=== PATIENT | male | born 1955 | race African-American/Black ===

== ENCOUNTER 2017-01-02 07:02 | Observation (INO) ==
--- NOTE | 2017-01-02 07:18 | EKG Report ---
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
[2017-01-02 07:29] LABS: Basophils # 0.1 10*3/uL (0.0-0.2); Basophils % 0.4 % (0.0-0.8); Eosinophils # 0.7 10*3/uL (0.0-0.87); Eosinophils % 4.4 % (0.00-10.9); Hematocrit 41.8 VOL% (42.0-52.0); Hemoglobin 12.7 GM/DL (14.0-18.0); Immature Granulocytes % 0.2 %; Immature Granulocytes Absolute 0.04 #; Lymphocytes # 11.5 10*3/uL (1.4-4.0); Lymphocytes % 67.6 % (21.2-54.2); Mean Corpuscular HGB Conc 30.4 GM/DL (32-36); Mean Corpuscular Hemoglobin 21 PG (27-34); Mean Corpuscular Volume 69.8 FL (87-102); Mean Platelet Volume 10.3 FL (9.6-12.0); Monocytes # 0.8 10*3/uL (0.11-0.8); Monocytes % 4.8 % (1.7-12.7); Neutrophils # 3.8 10*3/uL (1.4-7.4); Neutrophils % 22.6 % (38.7-73.9); Platelet Count 246 T/CUMM (130-400); Red Blood Count 5.99 MC/CUMM (3.8-5.5); Red Cell Distribution Width 14.8 % (9.3-17.3); White Blood Count 16.9 T/CUMM (4-12)
[2017-01-02] MEDS ORDERED: DILTIAZEM 50 MG/10 ML VIAL IV ONE (07:45)
[2017-01-02] MEDS ORDERED: DILTIAZEM 100 MG VIAL.ADD IV ONE (07:45)
[2017-01-02] MEDS ORDERED: ASPIRIN 325 MG TABLET PO STA (07:46)
[2017-01-02] MEDS ORDERED: ENOXAPARIN 100 MG/ML SYRINGE SUBCUT STA (07:46)
[2017-01-02] MEDS ORDERED: DILTIAZEM 50 MG/10 ML VIAL IV STA (07:46)
[2017-01-02] MEDS ORDERED: ENOXAPARIN 120 MG/0.8 ML SYRINGE SUBCUT ONE (07:50)
[2017-01-02] MEDS ORDERED: ASPIRIN 325 MG TABLET ONE (07:50)
--- NOTE | 2017-01-02 07:50 | XRay Report ---
XR chest 2V Indication: Cardiac palpitation Comparison: 07 September 2014 Findings: The heart and mediastinum are normal in size and configuration. The pulmonary vascularity is normal in caliber. Lung volumes are increased with prominent bronchial markings. No lung infiltrates, effusions, pneumothorax or other abnormality is demonstrated. Impression: Chronic lung changes. No acute process or significant change. PROCEDURE INTERPRETED AT [facility] DEPARTMENT OF RADIOLOGY Final Report Signed by: Dr. Scooter Manning
[2017-01-02 07:57] LABS: Alanine Aminotransferase 17 U/L (16-61); Albumin 2.8 G/DL (3.4-5.0); Alkaline Phosphatase 161 U/L (45-117); Aspartate Amino Transferase 10 U/L (0-37)
[2017-01-02 07:58] LABS: Blood Urea Nitrogen 8 MG/DL (7-18); Glucose 155 MG/DL (74-106); Osmolality,Calculated 279.4 MOS/KG (273-304); Potassium 3.8 MMOL/L (3.5-5.1); Sodium 140 MMOL/L (136-145)
[2017-01-02 08:01] LABS: Eosinophils 9 % (0-10); Hypochromasia 1+; Lymphocytes 55 % (20-55); Ovalocytes Slight; Platelet Estimate Normal; Segmented Neutrophils 31 % (50-85); Total Cells Counted 100
[2017-01-02 08:02] LABS: Troponin I Only 0.048 NG/ML (0.00-0.045)
[2017-01-02] MEDS: DILTIAZEM INJ 100 MG in SODIUM CHLORIDE 0.9% 100 ML IV SCH (08:02)
[2017-01-02 08:03] LABS: INR 1.1; PT Patient Result 12.2 SECS
[2017-01-02 08:20] LABS: Albumin 2.9 G/DL (3.4-5.0); Calcium 8.8 MG/DL (8.5-10.1); Osmolality,Calculated 277.5 MOS/KG (273-304); Potassium 3.8 MMOL/L (3.5-5.1); Thyroid Stimulating Hormone 1.37 uIU/ml (0.358-3.74); Total Protein 7.6 G/DL (6.4-8.3)
[2017-01-02 08:23] LABS: Troponin I Only 0.048 NG/ML (0.00-0.045)
[2017-01-02 08:55] LABS: Barbiturates Screen,Urine Negative (Negative); Benzodiazepines Screen,Urine Negative (Negative); Cannabinoid Screen,Urine Negative (Negative); Opiate Screen,Urine Negative (Negative); Phencyclidine Screen,Urine Negative (Negative)
--- NOTE | 2017-01-02 08:59 | Emergency Department Note ---
Aureliano Srivastava Meredith, am scribing for, and in the presence of, Rahul Laughlin MD 07:43. Truman Srivastava Phillip K, MD, personally performed the services described in this documentation, ascribed by Kathryn Bedoya in my presence, and it is both accurate and complete [id number] . Arrival - Arrival Chief Complaint: Arrhythmia/Palpitations Stated Complaint: increased heart rate ED Nursing Triage Note: Brought to ED from GI lab with c/o increased heart rate. Denies complaints. Was scheduled for colon scope this am by Dr Ybarra. Mode of Arrival: Stretcher Limitations: No Limitations Source: Patient, Old Records Reviewed, RN Notes Reviewed Time Seen by Provider: 01/02/17 07:43 - History of Present Illness HPI Narrative: Pt is a 61 y/o black male brought to the ED from the GI lab for elevated heart rate. He denies any complaints. Pt was supposed to have a colon scope per Dr. Ybarra. He has a history of a-fib, CHF, HTN, HLD, NIDDM, RA, asthma, and sleep apnea. Onset (ago): hour(s) Allergies/Adverse Reactions: Allergies Allergy/AdvReac Type Severity Reaction Status Date / Time Shrimp Allergy Unknown Unknown/Unable Verified 01/02/17 07:08 to obtain sulfamethoxazole Allergy Unknown Unknown/Unable Verified 01/02/17 07:08 [From Bactrim] to obtain trimethoprim [From Bactrim] Allergy Unknown Unknown/Unable Verified 01/02/17 07: 08 to obtain Home Medications: Home Medications Medication Instructions Recorded Confirmed Type Atorvastatin [Lipitor] 40 mg PO BEDTIME 09/07/15 12/26/16 History Labetalol Tab [Trandate Tab] 200 mg PO DAILY 09/07/15 01/01/17 History Lisinopril 40 mg PO DAILY 09/07/15 12/26/16 History Spironolactone [Aldactone] 25 mg PO DAILY 09/07/15 12/26/16 History hydroCHLOROthiazide 25 mg PO DAILY 09/07/15 01/01/17 History [Hydrochlorothiazide] metFORMIN [Glucophage] 1,000 mg PO BID W/MEALS 09/07/15 01/02/17 History Carvedilol [Coreg] 6.25 mg PO BID 12/26/16 12/26/16 History Sildenafil Citrate [Viagra] 100 mg PO DAILY PRN 12/26/16 12/26/16 History hydrALAZINE TAB [Apresoline Tab] 25 mg PO DAILY 12/26/16 12/26/16 History Review of System - Review of System 12 point system: reviewed and no additional remarkable complaints except as stated - Review of System Respiratory: Present: as per HPI. Absent: respiratory distress Cardiovascular: Present: as per HPI, other (elevated heart rate). Absent: chest pain Gastrointestinal: Present: as per HPI. Absent: nausea Medical,Surgical,& Family Hx - Medical History Cardio: History of: Cardiac Dysrhythmia (A. fib), CHF, Hypertension No history of: [place], Valvular Heart Disease Neurology: No history of: Cerebrovascular Accident, Seizures Endocrine: History of: Diabetes Mellitus (NIDDM), Dyslipidemia Rheumatology: History of;: Rheumatoid Arthritis (in 2003) Respiratory: History of: Asthma, Obstructive Sleep Apnea Gastrointestinal: History of: Liver Problems (Elevated liver enzymes in the past ) Musculoskeletal: History of: Musculoskeletal Problems (arthritis) No history of: Amputation - Surgical History Cardiac Surgeries: Patient Denies: Cardiac Catheterization Thoracic Surgeries: Patient denies;: Organ Transplant, Lobectomy Neurologic Surgeries: Patient denies: Neurologic Surgery HEENT Surgeries: Patient denies: Eye Surgery, Tonsilectomy & Adenoidectomy Abdominal Surgeries: Surgical HX of: Abdominal Surgery Patient denies: Appendectomy, Cholecystectomy, Colonoscopy, Gastric Bypass Surgery, EGD, Hernia Repair Reproductive Surgeries: Patient denies;: Genitourinary Surgery Orthopedic Surgeries: Surgical HX of;: Orthopedic Surgery (left foot bone spurs) Patient denies;: Implanted Devices, Spinal Surgery, Total Hip Replacement, Total Knee Replacement - Family History Family History: Reports;: Family Diabetes (Mother, Father, Brother), Family Heart Disease (Sister), Family Hypertension (Mother, Father, Brother, Sister), Family Stroke Denies;: Family Cancer - Social History Smoking Status: Never smoker Frequency of Alcohol Use: None Type of Drug Use: None Exam Vital Signs: Vital Signs Temperature 97.9 F 01/02/17 07:02 Pulse Rate 155 H 01/02/17 07:05 Respiratory Rate 18 01/02/17 07:05 Blood Pressure 164/106 01/02/17 07:02 O2 Sat by Pulse Oximetry 99 01/02/17 07:02 - General General appearance: alert, in no apparent distress, obese - Head Head exam: Present: atraumatic, normocephalic - Eye Eye exam: Present: normal appearance, PERRL, EOMI - ENT ENT exam: Present: mucous membranes moist, normal external ear exam - Neck Neck exam: Present: full ROM, trachea midline. Absent: tenderness, meningismus , lymphadenopathy, thyromegaly - Chest Chest inspection: Present: symmetric chest wall rise. Absent: tenderness, rash - Respiratory Respiratory exam: Present: normal lung sounds bilaterally. Absent: respiratory distress - Cardiovascular Cardiovascular exam: Present: tachycardia, irregular rhythm. Absent: murmur, rubs, gallop - Abdominal Exam Abdominal exam: Present: soft, normal bowel sounds. Absent: distention, tenderness - Extremities Exam Extremities exam: Present: full ROM, normal capillary refill, pedal edema (1+ pitting pedal edema bilaterally ). Absent: tenderness, calf tenderness - Back Exam Back exam: Present: full ROM. Absent: tenderness - Neurological Exam Neurological exam: Present: alert, oriented X3, CN II-XII intact. Absent: motor sensory deficit - Psychiatric Psychiatric exam: Present: normal affect, normal mood - Skin Skin exam: Present: warm, dry, intact, normal color Course Course Narrative: Mr. Byrnes is a patient of Dr. Newberry's and Dr. Luna is weapons officer for him and he will evaluate in the ED. Results - Labs CBC & BMP: 01/02/17 07:20 01/02/17 07:20 Lab Results: I have reviewed the patients labs Labs: Laboratory Tests 01/02/17 01/02/17 01/02/17 07:20 07:20 07:20 WBC 16.9 H RBC 5.99 H Hgb 12.7 L Hct 41.8 L MCV 69.8 L MCH 21 L MCHC 30.4 L Plt Count 246 Neut % (Auto) 22.6 L Lymph % (Auto) 67.6 H Lymph # (Auto) 11.5 H Segmented Neutrophils 31 L INR 1.1 PT Patient/Control Mix 12.2 Sodium 140 Potassium 3.8 Chloride 105 Carbon Dioxide 24 BUN 8 Creatinine 0.70 Glucose 155 H Alkaline Phosphatase 161 H Troponin I 0.048 H Albumin 2.8 L Globulin 5.2 H Albumin/Globulin Ratio 0.5 L - EKG EKG results: interpreted by RICK (atrial fibrillation with RVR) - Diagnostic Findings Procedure: Chest x-ray: report reviewed by me (Chronic lung changes. No acute process or significant change. ) Disposition Clinical Impression: Atrial fibrillation with RVR Case discussed with: patient Disposition: Still a Patient Condition: Guarded Additional Instructions: Admitted to Dr. Luna
--- NOTE | 2017-01-02 10:25 | Cardiology History & Physical ---
Assessment and Plan - Time spent with patient Time spent with patient: Greater than 30 minutes (1) Hypertension Status: Chronic Assessment and plan: SEE PLAN OF CARE LISTED BELOW Current Visit: Yes (2) Hyperlipidemia Status: Chronic Assessment and plan: SEE PLAN OF CARE LISTED BELOW Current Visit: Yes (3) Diabetes Status: Chronic Assessment and plan: SEE PLAN OF CARE LISTED BELOW Current Visit: Yes (4) Hepatitis Status: Chronic Assessment and plan: SEE PLAN OF CARE LISTED BELOW Current Visit: Yes (5) Sleep disorder Status: Chronic Assessment and plan: SEE PLAN OF CARE LISTED BELOW Current Visit: Yes (6) Obesity (BMI 30.0-34.9) Status: Acute Current Visit: Yes (7) CLL (chronic lymphocytic leukemia) Status: Chronic Assessment and plan: SEE PLAN OF CARE LISTED BELOW Current Visit: Yes (8) Cardiomyopathy, dilated Status: Chronic Assessment and plan: SEE PLAN OF CARE LISTED BELOW Current Visit: Yes (9) Elevated troponin Status: Acute Assessment and plan: SEE PLAN OF CARE LISTED BELOW Current Visit: Yes (10) Edema Status: Chronic Assessment and plan: SEE PLAN OF CARE LISTED BELOW Current Visit: Yes (11) Diabetes mellitus type 2 in obese Status: Chronic Assessment and plan: SEE PLAN OF CARE LISTED BELOW Current Visit: No (12) Atrial fibrillation with RVR Status: Chronic Assessment and plan: SEE PLAN OF CARE LISTED BELOW Current Visit: Yes History of Present Illness Chief complaint: atrial fibrillation with rapid ventricular response History of present illness: Mr. Byrnes is a 61 year old male previously followed by Dr. Newberry while hospitalized. He has not been seen in cardiovascular [place] at the [facility]. Last echocardiogram 02/28/2016 reveals EF 55% four-chamber cardiac enlargement, moderate pulmonary hypertension with quadrivalvular mild insufficiency. Risk factors include: Hypertension, diabetes, hyperlipidemia, obesity, sedentary lifestyle. Past medical history includes atrial fibrillation , dilated cardiomyopathy, CLL, SLL, untreated sleep apnea, hypothyroidism, hepatitis. 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 Patient tells me he's never had stress testing or cardiac catheterization. Patient was being readied for colonoscopy this morning when his heart rate revealed rates as high as the 180s. He was noted to be in atrial fibrillation with rapid ventricular response. He was then routed to the emergency department at [facility] where he is being seen and examined. He has been started on IV Cardizem 15 mg/h and his heart rate has improved from 90 bpm to 120 bpm. He remains in an atrial fibrillation pattern. This is not a new occurrence. He tells me he was encouraged to take Xarelto in the past but declined because he was afraid of the side effects. He denies ever having had a stroke. He does not take aspirin. Patient denies chest pain, heaviness or tightness. He denies shortness of breath. He states he felt fine when his heart rate was noted to be 180 bpm. He cannot tell a difference his heart rate has improved to the previously stated rates. He has not taken his medications in weeks and possibly months. He has been out of medications including his diabetes medications. Upon review , the last time he was seen in Dr. Peguero's office, June 2016, is noted he was taking the following cardiac meds: Coreg, Aldactone, Lasix, hydralazine, HCTZ, lisinopril and Lipitor. At this point, Mr. Byrnes is anxious for release home but he acknowledges that he will agree to hospitalization, overnight. He states he cannot have his colonoscopy today he will simply not undergo colonoscopy as he intends on eating a full meal today. Of note, his first set of cardiac biomarkers reveals a troponin of 0.04. We'll continue to cycle his cardiac biomarkers, repeat echocardiogram. Will transition from IV Cardizem to oral Cardizem as able. I did discuss the merits of taking nontraditional anticoagulant for stroke prevention however he still declines at this point. Hopefully, during hospital stay, he'll be agreeable to take at least an aspirin and we can consider something such as Plavix. I will go ahead and order Lovenox 1 mg/kg one time dose. Patient tells me that he snores loudly. He has a Mallampati Airway Class III. He wakes chronically fatigued. He was told in the past he has sleep apnea though he has never been tested. He has been referred but never kept this appointment. We will consult sleep medicine during the hospital stay or arrange for outpatient sleep testing. ASSESSMENT/PLAN: 1. ATRIAL FIBRILLATION WITH RVR - currently on IV Cardizem 50 mg/h. We will transition to oral in addition to the IV until we get his heart rate under better control. Again, we could consider the Plavix for stroke prevention if he is agreeable. I he was scheduled for elective colonoscopy. He denies vomiting of blood or passing blood in his stool. However, he is somewhat mildly anemic. We will check a stool for occult blood 2. NON-COMPLIANCE - reiterated the merits of compliance 3. HYPERTENSION - adjust medications accordingly during the hospital several better blood pressure control 4. HLD -check liver enzymes. If LFTs are stable will incorporate a lipid- lowering agent 5. ELEVATED TROPONIN - first report reveals a troponin of 0.04. We'll continue to cycle his cardiac biomarkers. 6. CLL/SLL - previously followed by Dr. Tyler. We'll consult as needed during hospital stay 7. UNTREATED SLEEP APNEA -consult sleep medicine 8. ANEMIA - continue current plan of care 9. DIABETES - cover with sliding scale insulin until he can get his sugars well controlled on oral medications 10. CARDIOMYOPATHY, DILATED - repeating echocardiogram 11. HISTORY OF HEPATITIS - records report chronic hepatitis. 12. ALLERGY AMIODORONE - possibly contributing to congestive hepatopathy 13. ALLERGY SHRIMP - vomiting, mouth swelling 14. EDEMA - hopefully, with better control of his heart rate, we will be able to rid him of some of his lower extremity edema. He's been out of his diuretics. We'll also check for DVT. Home Medications Medication Instructions Recorded Confirmed Type Atorvastatin [Lipitor] 40 mg PO BEDTIME 09/07/15 12/26/16 History Labetalol Tab [Trandate Tab] 200 mg PO DAILY 09/07/15 01/01/17 History Lisinopril 40 mg PO DAILY 09/07/15 12/26/16 History Spironolactone [Aldactone] 25 mg PO DAILY 09/07/15 12/26/16 History hydroCHLOROthiazide 25 mg PO DAILY 09/07/15 01/01/17 History [Hydrochlorothiazide] metFORMIN [Glucophage] 1,000 mg PO BID W/MEALS 09/07/15 01/02/17 History Carvedilol [Coreg] 6.25 mg PO BID 12/26/16 12/26/16 History Sildenafil Citrate [Viagra] 100 mg PO DAILY PRN 12/26/16 12/26/16 History hydrALAZINE TAB [Apresoline Tab] 25 mg PO DAILY 12/26/16 12/26/16 History Allergies Allergy/AdvReac Type Severity Reaction Status Date / Time Shrimp Allergy Unknown Unknown/Unable Verified 01/02/17 07:08 to obtain sulfamethoxazole Allergy Unknown Unknown/Unable Verified 01/02/17 07:08 [From Bactrim] to obtain trimethoprim [From Bactrim] Allergy Unknown Unknown/Unable Verified 01/02/17 07: 08 to obtain Review of systems: REVIEW OF SYSTEMS: See my HPI - Constitutional Constitutional: Absent: syncope, anorexia, night sweats - EENT Eyes: Absent: blurry vision, loss of vision, diplopia Ears: Absent: decreased hearing, ear pain, ear discharge - Cardiovascular Cardiovascular: Denies: chest pain with exertion, dyspnea on exertion, palpitations. Absent: chest pain with deep breath, claudication. Chronic bilateral lower extremity edema - Respiratory Respiratory: Denies LUDWIG, cough. Absent: wheezing, hemoptysis, change in phlegm color - Gastrointestinal Gastrointestinal: Present: constipation. Absent: abdominal pain, hematemesis , hematochezia, melena, change in bowel habits, nausea - Genitourinary Genitourinary: Absent: difficulty urinating, dysuria, urinary hesitancy, flank pain eared acknowledges impotence. - Musculoskeletal Musculoskeletal: Present: back pain, left foot pain Absent: joint swelling, muscle cramps, muscle weakness - Neurological Neurological: Present: normal gait without frequent falls. Absent: dizziness, hemiparesis - Psychiatric Psychiatric: Absent: anxiety, depression, difficulty concentrating - Endocrine Endocrine: Absent: cold intolerance, heat intolerance, polyuria, polyphagia, polydipsia - Hematologic/Lymphatic Hematologic/Lymphatic: Present: easy bruising. Absent: easy bleeding -Integumentary Integumentary: Absent: lesions, rashes, skin breakdown Medical,Surgical,& Family Hx - Medical History Cardio: History of: Cardiac Dysrhythmia (A. fib), CHF, Hypertension No history of: [place], Valvular Heart Disease Neurology: No history of: Cerebrovascular Accident, Seizures Endocrine: History of: Diabetes Mellitus (NIDDM), Dyslipidemia Rheumatology: History of;: Rheumatoid Arthritis (in 2003) Respiratory: History of: Asthma, Obstructive Sleep Apnea Gastrointestinal: History of: Hepatitis, Liver Problems (Elevated liver enzymes in the past) Musculoskeletal: History of: Musculoskeletal Problems (arthritis) No history of: Amputation - Surgical History Cardiac Surgeries: Patient Denies: Cardiac Catheterization Thoracic Surgeries: Patient denies;: Organ Transplant, Lobectomy Neurologic Surgeries: Patient denies: Neurologic Surgery HEENT Surgeries: Patient denies: Eye Surgery, Tonsilectomy & Adenoidectomy Abdominal Surgeries: Surgical HX of: Abdominal Surgery Patient denies: Appendectomy, Cholecystectomy, Colonoscopy, Gastric Bypass Surgery, EGD, Hernia Repair Reproductive Surgeries: Patient denies;: Genitourinary Surgery Orthopedic Surgeries: Surgical HX of;: Orthopedic Surgery (left foot bone spurs) Patient denies;: Implanted Devices, Spinal Surgery, Total Hip Replacement, Total Knee Replacement - Family History Family History: Reports;: Family Diabetes (Mother, Father, Brother), Family Heart Disease (Sister), Family Hypertension (Mother, Father, Brother, Sister), Family Stroke Denies;: Family Cancer - Social History Smoking Status: Never smoker Frequency of Alcohol Use: None Type of Drug Use: None Lives With:: Alone Functional capacity: independent ambulation Cardiology Physical Exam - Constitutional Vitals: Vital Signs Temp Pulse Resp BP Pulse Ox 97.9 F 155 H 18 164/106 99 01/02/17 07:02 01/02/17 07:05 01/02/17 07:05 01/02/17 07:02 01/02/17 07:02 Intake and Output 01/01/17 01/02/17 01/02/17 23:59 07:59 15:59 Intake Total 50 / 50 3 / 3 Balance 50 / 50 3 / 3 Intake: IV 3 / 3 Cardizem Inj 100 mg In Ns 3 / 100 ml @ 5 MG/HR 5 mls/ hr IV TITRATE CELSO Rx#: [id number] Intake - Additional IV 50 / 50 Volume (mLs) Right Antecubital 50 / 50 Other: Weight 117.934 kg Patient Weight 01/02/17 23:59 Weight 117.934 kg Exam: General: Appears well with no apparent distress. Pleasant and cooperative. Appears comfortable. HEENT: Bilateral arcus noted. normocephalic, atraumatic. Mucous membranes moist. No jaundice noted. Conjunctiva moist and clear, sclerae anicteric Neck: No JVD/HJR, no thyromegaly or lymphadenopathy noted. No carotid bruit appreciated Cardiac: Irregularly irregular rhythm, tachycardia rate. No murmur rub or gallop. Lungs: Clear to auscultation without accessory muscle use to assist the respiratory pattern. Oxygen in use via nasal cannula Abdomen: Soft, bowel sounds normoactive. Nontender and nondistended. No abdominal bruit or thrill noted. No masses noted. Musculoskeletal: No fluid collection. Decreased range of motion is noted. Extremities: No clubbing, cyanosis noted. 1-2+ brawny edema noted of both lower extremities. Upper extremity pulses 2+. Lower extremity pulses 1+. Capillary refill less than 3 seconds. Skin: No unusual lesions or rashes. No skin breakdown appreciated. Neuro: Awake, alert and oriented 3. Moves all extremities well without hemiparesis or paralysis. No essential tremor is appreciated. Result/EKG - Labs CBC & BMP: 01/02/17 07:20 01/02/17 07:20 Lab Results: I have reviewed the past 24 hour labs Labs: Laboratory Results - last 24 hr 01/02/17 01/02/17 01/02/17 07:20 07:20 07:20 WBC 16.9 H RBC 5.99 H Hgb 12.7 L Hct 41.8 L MCV 69.8 L MCH 21 L MCHC 30.4 L RDW 14.8 Plt Count 246 MPV 10.3 Neut % (Auto) 22.6 L Lymph % (Auto) 67.6 H [place] % (Auto) 4.8 Eos % (Auto) 4.4 Baso % (Auto) 0.4 Neut # (Auto) 3.8 Lymph # (Auto) 11.5 H [place] # (Auto) 0.8 Eos # (Auto) 0.7 Baso # (Auto) 0.1 Total Counted 100 Immature Gran % 0.2 Nucleated RBC % 0.0 Immature Gran # 0.04 Segmented Neutrophils 31 L Lymphocytes 55 Monocytes 5 Eosinophils 9 Nucleated RBCs # 0.00 Platelet Estimate Normal Hypochromasia 1+ Ovalocytes Slight Morphology Comment INR 1.1 PT Patient/Control Mix 12.2 Sodium 140 Potassium 3.8 Chloride 105 Carbon Dioxide 24 Anion Gap 14.8 BUN 8 Creatinine 0.70 GFR Calculation 170 BUN/Creatinine Ratio 11.00 Glucose 155 H Calculated Osmolality 279.4 Calcium 9.0 Magnesium Total Bilirubin 1.00 AST 10 ALT 17 Alkaline Phosphatase 161 H Total Creatine Kinase 60 CK-MB (CK-2) 1.1 Troponin I 0.048 H Total Protein 8.0 Albumin 2.8 L Globulin 5.2 H Albumin/Globulin Ratio 0.5 L TSH 3rd Generation Urine Opiates Screen Ur Barbiturates Screen Ur Phencyclidine Scrn U Amphetamine/Methamph U Benzodiazepines Scrn U Cocaine Metab Screen U Cannabinoids Screen 01/02/17 01/02/17 01/02/17 07:20 07:20 07:20 WBC RBC Hgb Hct MCV MCH MCHC RDW Plt Count MPV Neut % (Auto) Lymph % (Auto) [place] % (Auto) Eos % (Auto) Baso % (Auto) Neut # (Auto) Lymph # (Auto) [place] # (Auto) Eos # (Auto) Baso # (Auto) Total Counted Immature Gran % Nucleated RBC % Immature Gran # Segmented Neutrophils Lymphocytes Monocytes Eosinophils Nucleated RBCs # Platelet Estimate Hypochromasia Ovalocytes Morphology Comment INR PT Patient/Control Mix Sodium 139 Potassium 3.8 Chloride 104 Carbon Dioxide 25 Anion Gap 13.8 BUN 8 Creatinine 0.70 GFR Calculation 170 BUN/Creatinine Ratio 11.00 Glucose 153 H Calculated Osmolality 277.5 Calcium 8.8 Magnesium 1.9 Total Bilirubin 1.00 AST 11 ALT 18 Alkaline Phosphatase 164 H Total Creatine Kinase CK-MB (CK-2) Troponin I 0.048 H Total Protein 7.6 Albumin 2.9 L Globulin 4.7 H Albumin/Globulin Ratio 0.6 L TSH 3rd Generation 1.370 Urine Opiates Screen Negative Ur Barbiturates Screen Negative Ur Phencyclidine Scrn Negative U Amphetamine/Methamph Negative U Benzodiazepines Scrn Negative U Cocaine Metab Screen Negative U Cannabinoids Screen Negative - Diagnostic Findings Procedure: Chest x-ray: report reviewed by me - EKG EKG results: interpreted by in EKG shows: atrial fibrillation (RVR)
[2017-01-02] MEDS ORDERED: CARVEDILOL 6.25 MG TABLET PO SCH (10:30)
[2017-01-02] MEDS ORDERED: GLUCAGON 1 MG VIAL IM PRN (10:35)
[2017-01-02] MEDS ORDERED: DEXTROSE 50% 25 GM/50 ML VIAL IV PRN (10:35)
[2017-01-02 13:07] LABS: Basophils # 0.1 10*3/uL (0.0-0.2); Basophils % 0.5 % (0.0-0.8); Eosinophils # 0.7 10*3/uL (0.0-0.87); Eosinophils % 3.6 % (0.00-10.9); Hematocrit 42.7 VOL% (42.0-52.0); Immature Granulocytes % 0.2 %; Immature Granulocytes Absolute 0.04 #; Lymphocytes # 14.3 10*3/uL (1.4-4.0); Lymphocytes % 72.9 % (21.2-54.2); Mean Corpuscular HGB Conc 30.4 GM/DL (32-36); Mean Corpuscular Hemoglobin 22 PG (27-34); Mean Corpuscular Volume 70.7 FL (87-102); Mean Platelet Volume 10.7 FL (9.6-12.0); Monocytes # 0.8 10*3/uL (0.11-0.8); Monocytes % 4.2 % (1.7-12.7); Neutrophils # 3.6 10*3/uL (1.4-7.4); Neutrophils % 18.6 % (38.7-73.9); Platelet Count 278 T/CUMM (130-400); Red Blood Count 6.04 MC/CUMM (3.8-5.5); Red Cell Distribution Width 15.1 % (9.3-17.3); White Blood Count 19.6 T/CUMM (4-12)
--- NOTE | 2017-01-02 13:28 | Gastrointestinal Consult Note ---
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 He is doing much better at this time and his bilirubin is back down from low 20's down to 1. No further manipulation is going to be required from a GI standpoint to deal with this issue. He has done very well as an outpatient with diuresis alone. Current Visit: Yes (2) Screening for colorectal cancer Status: Acute Assessment and plan: This patient was due to get his colonoscopy, unfortunately due to his personal confusion over the prep hip prep twice to get this done and had not been able to complete the preparation properly until today on his third attempt now has developed rapid ventricular response with new onset atrial fibrillation. I believe that he will need to be on anticoagulation for at least 6 months and as this colonoscopy is simply a screening test we will put her off at this point. He is certainly not anemic and does not have lower GI symptoms. We can revisit the issue perhaps [address] when he is able to come off the anticoagulation briefly in order to perform the test. This was explained to the patient. I will restart his cardiac diet. Current Visit: Yes History of Present Illness Chief complaint: Due for routine colorectal cancer screening. Previous jaundice resolved History of present illness: Mr. Byrnes is a 61 year old male Who has a history of underlying CLL and jaundice with hepatitis who had initially seen on referral from Dr. Mak back in August 2015. At that time his spleen was slightly enlarged as well as his liver. He was thought perhaps to have an amiodarone reaction but as time went on this proved to be simply a severe right ventricular pump failure producing elevations in the liver function tests from congestive hepatitis with mild periventricular fibrosis by biopsy on 09/08/15. As he improved his diuresis the patient got a great deal better and his bilirubin that have been as high as 21.8 dropped back into the normal range where it remains now. He has a mild residual increase in his alkaline phosphatase currently at 164. His bilirubin is back down to 1.0 and his transaminases are normal at this time. He was last seen in the office since on 06/28/16 where he mostly complained of a lack of libido. He was set up for routine colonoscopy which we have been trying to obtain since and the patient was set to come in after his third episode of trying to get him to prep appropriately this morning. Unfortunately was found to have a rhythm that was in atrial fibrillation with rapid ventricular rate requiring hospitalization for rate control. He is currently being anticoagulated and I am dubious as to whether or not we will be able to complete the colonoscopy this admission. He had been controlled with Aldactone 25 mg per day and Coreg 6.25 mg twice daily with furosemide 40 mg daily and hydrochlorothiazide 25 mg daily as his main cardiac drugs. His hematocrit and hemoglobin are normal at 42.7 and 13.0. His white blood cell count however is elevated at 19.6. MCV is slightly low at 70.7. This morning when he presented for his third attempt colonoscopy due to poor prep or no prep the last 2 days, he was noted to have atrial fibrillation with rapid ventricular response with heart rate in the 187 frequent PVCs. Was having increasing lower extremity swelling and was brought in for Cardizem drip and rate control as well as likely anticoagulation. His white blood cell count increase is likely due to his CLL. Home Medications Medication Instructions Recorded Confirmed Type Unable To Obtain [Unable to Obtain] 01/02/17 01/02/17 History Allergies Allergy/AdvReac Type Severity Reaction Status Date / Time Shrimp Allergy Unknown Unknown/Unable Verified 01/02/17 07:08 to obtain sulfamethoxazole Allergy Unknown Unknown/Unable Verified 01/02/17 07:08 [From Bactrim] to obtain trimethoprim [From Bactrim] Allergy Unknown Unknown/Unable Verified 01/02/17 07: 08 to obtain Medical,Surgical,& Family Hx - Medical History Cardio: History of: Cardiac Dysrhythmia (A. fib), CHF, Hypertension No history of: MA, Valvular Heart Disease Neurology: No history of: Cerebrovascular Accident, Seizures Endocrine: History of: Diabetes Mellitus (NIDDM), Dyslipidemia Rheumatology: History of;: Rheumatoid Arthritis (in 2003) Respiratory: History of: Asthma, Obstructive Sleep Apnea Gastrointestinal: History of: Hepatitis, Liver Problems (Elevated liver enzymes in the past) Musculoskeletal: History of: Musculoskeletal Problems (arthritis) No history of: Amputation - Surgical History Cardiac Surgeries: Patient Denies: Cardiac Catheterization Thoracic Surgeries: Patient denies;: Organ Transplant, Lobectomy Neurologic Surgeries: Patient denies: Neurologic Surgery HEENT Surgeries: Patient denies: Eye Surgery, Tonsilectomy & Adenoidectomy Abdominal Surgeries: Surgical HX of: Abdominal Surgery Patient denies: Appendectomy, Cholecystectomy, Colonoscopy, Gastric Bypass Surgery, EGD, Hernia Repair Reproductive Surgeries: Patient denies;: Genitourinary Surgery Orthopedic Surgeries: Surgical HX of;: Orthopedic Surgery (left foot bone spurs) Patient denies;: Implanted Devices, Spinal Surgery, Total Hip Replacement, Total Knee Replacement - Family History Family History: Reports;: Family Diabetes (Mother, Father, Brother), Family Heart Disease (Sister), Family Hypertension (Mother, Father, Brother, Sister), Family Stroke Denies;: Family Cancer - Social History Smoking Status: Never smoker Frequency of Alcohol Use: None Type of Drug Use: None Review of systems: Constitutional: Denies fever, chills, nausea, and vomiting Eyes: Denies dry eyes, and scleral icterus HENT: Denies headaches Cardiovascular: Denies acute chest pain and claudication Respiratory: Denies shortness of breath, wheezing, and difficulty breathing, denies cough Gastrointestinal: As noted in the HPI Genitourinary: Denies dysuria and hematuria Neurologic: Denies vision loss, and loss of sensation Musculoskeletal: Patient does have some mild joint swelling, joint stiffness , and muscular weakness Psychiatric: Denies depression and lani symptoms Heme-Lymph: Denies easy bruising, lymph node enlargement or tenderness, night sweats, excessive bleeding Allergies-immunologic: Denies pruritus and rhinorrhea Exam - Constitutional Vitals: Period Temp Pulse Resp BP Sys/Francis Pulse Ox Last 24 Hr 97.4 F-98.2 F 81-88 18-20 102-162/88-101 94-100 General appearance: over weight - Head Head exam: Present: normocephalic, atraumatic - Eye Eye exam: Present: EOMI Pupils: Present: KALEB - Respiratory Respiratory exam: Present: clear to auscultation bilaterally. Absent: rales, rhonchi, wheezes - Cardiovascular Cardiovascular exam: Present: irregular rhythm. Absent: gallop, rubs, systolic murmur - GI/Abdominal GI/Abdominal exam: Present: normal bowel sounds, distended, soft, other (We did not pursue rectal exam.). Absent: tenderness, rebound - Back Exam Back exam: Present: normal inspection - Neurological Exam Neurological exam: Present: alert, oriented X3, CN II-XII intact. Absent: motor sensory deficit - Psychiatric Psychiatric exam: Present: normal affect, normal mood - Skin Skin exam: Present: warm Results - Labs CBC & BMP: 01/02/17 12:54 01/02/17 07:20
--- NOTE | 2017-01-02 14:52 | Ultrasound Report ---
Bilateral lower extremity venous Doppler with martines scale, Spectral Doppler and color-flow analysis performed and interpreted. Indication: edema Scanning over both common femoral veins, superficial femoral veins, greater saphenous veins and popliteal veins demonstrates normal compressibility, color flow, and augmentation. Impression: No evidence of DVT seen in either lower extremity. PROCEDURE INTERPRETED AT [facility] DEPARTMENT OF RADIOLOGY Final Report Signed by: Dr. Kristel Collins
--- NOTE | 2017-01-02 15:57 | EKG Report ---
Stationary ECG Study [facility] Test Date: 01/02/2017 3:56:20 PM Pat Name: LALO GUPTA Department: Room: 264 Gender: M [employer] Rn: CRISTIAN : 1955 Requested by: Meredith Cobian Order Number: [id number] Reading MD: LIZZY PARRISH Intervals [place] Rate: 95 P: 999 WI: 0 QRS: -25 QRSD: 103 T: 91 QT: 430 QTc: 483 Interpretive Statements Artifacts limit interpretation Atrial fibrillation Electronically Signed On 01-03-17 22:58:06 CERTIFIED ANESTHESIOLOGIST ASSISTANT by LIZZY PARRISH [email or web address]
[2017-01-02 16:16] LABS: Atypical Lymphocytes 1+; Eosinophils 6 % (0-10); Lymphocytes 65 % (20-55); Segmented Neutrophils 27 % (50-85); Smudge Cells Few; Total Cells Counted 100
[2017-01-02 16:17] LABS: Hypochromasia Slight; Microcytosis 1+; Platelet Estimate Normal
--- NOTE | 2017-01-02 16:36 | Sleep Medicine Consult ---
Assessment and Plan (1) Unspecified sleep apnea Status: Acute Assessment and plan: His history certainly is concerning for obstructive sleep apnea with his medical comorbidities, evaluation is indicated. We will initiate HST evaluation tonight. Thank you for this consult. Current Visit: Yes (2) Hypertension Status: Acute Assessment and plan: The prevalence rate for obstructive sleep apnea patients with hypertension is 35 %. That rate can be as high as 80% in patients who require 4 or more medications for blood pressure control. Current Visit: No (3) Diabetes mellitus type 2 in obese Status: Chronic Assessment and plan: The prevalence rate for obstructive sleep apnea in patients with type 2 diabetes can be as high as 86%. Those patients with moderate to severe obstructive sleep apnea are at a greater risk for diabetic nephropathy and neuropathy. Compliance with CPAP therapy for these patients can lead to improvement in glycemic control and improvement in insulin sensitivity. Current Visit: No (4) Atrial fibrillation with RVR Status: Chronic Assessment and plan: The prevalence for obstructive sleep apnea in patients with atrial fibrillation ranges from 30-80%. Treatment underlying sleep disorder often can improve management of the A. fib and decrease his recurrence rate by almost 50%. Current Visit: Yes History of Present Illness Chief complaint: sleep apnea History of present illness: Mr. Byrnes is a 61 year old male transferred from outside facility for atrial fibrillation with rapid ventricular response. He has been admitted and seen by cardiology. There was a history of concern for sleep apnea in the past but he is never followed through with sleep evaluation is recommended. He does have a history of snoring but denies any history of witnessed apneas or awakening from sleep short of breath. He usually retires between 10 and 11 p.m. and will awaken around 6 in the morning. He awakens up to 3 times a night to urinate. He does have a history of swelling of his lower extremities and does have some symptoms of sleepiness during the day. He denies any history of restless legs or leg jerks. He has a net worth sleepiness score of 9 and STOP BANG score of 6. He does have a history of pulmonary hypertension on previous echocardiogram no has maintained normal LV function previously. He also is treated for type 2 diabetes. Home Medications Medication Instructions Recorded Confirmed Type Unable To Obtain [Unable to Obtain] 01/02/17 01/02/17 History Allergies Allergy/AdvReac Type Severity Reaction Status Date / Time Shrimp Allergy Unknown Unknown/Unable Verified 01/02/17 07:08 to obtain sulfamethoxazole Allergy Unknown Unknown/Unable Verified 01/02/17 07:08 [From Bactrim] to obtain trimethoprim [From Bactrim] Allergy Unknown Unknown/Unable Verified 01/02/17 07: 08 to obtain Review of systems: Otherwise unremarkable other than as mentioned in HPI regarding sleep. Exam (Pulmonay) H&P - Constitutional Vitals: Period Temp Pulse Resp BP Sys/Francis Pulse Ox Last 24 Hr 97.4 F-98.3 F 81-89 18-20 102-162/88-109 94-100 Exam: He is alert and responsive in no acute distress. Pupils equal round reactive to light and accommodation. Extraocular movements intact. Oropharynx with a class IV Mallampati exam. He's got a calcified-appearing density or substance attached to the right premolar. This is abutting the gumline. It does not appear fleshy but more calcific in appearance. His neck is supple without adenopathy or thyromegaly. He does have a neck circumference of 19.5 inches. No supraclavicular adenopathy is noted. Chest with symmetrical breath sounds without focal wheezes, rhonchi, or rales. Cardiac exam reveals a regular rhythm without murmur or gallop. Abdomen soft nontender without palpable hepatosplenomegaly or mass. Extremities are without clubbing, cyanosis, or edema. Neurologically, he is grossly intact. He moves all extremities with good strength. Medical,Surgical,& Family Hx - Medical History Cardio: History of: Cardiac Dysrhythmia (A. fib), CHF, Hypertension No history of: MS, Valvular Heart Disease Neurology: No history of: Cerebrovascular Accident, Seizures Endocrine: History of: Diabetes Mellitus (NIDDM), Dyslipidemia Rheumatology: History of;: Rheumatoid Arthritis (in 2003) Respiratory: History of: Asthma, Obstructive Sleep Apnea Gastrointestinal: History of: Hepatitis, Liver Problems (Elevated liver enzymes in the past) Musculoskeletal: History of: Musculoskeletal Problems (arthritis) No history of: Amputation - Surgical History Cardiac Surgeries: Patient Denies: Cardiac Catheterization Thoracic Surgeries: Patient denies;: Organ Transplant, Lobectomy Neurologic Surgeries: Patient denies: Neurologic Surgery HEENT Surgeries: Patient denies: Eye Surgery, Tonsilectomy & Adenoidectomy Abdominal Surgeries: Surgical HX of: Abdominal Surgery Patient denies: Appendectomy, Cholecystectomy, Colonoscopy, Gastric Bypass Surgery, EGD, Hernia Repair Reproductive Surgeries: Patient denies;: Genitourinary Surgery Orthopedic Surgeries: Surgical HX of;: Orthopedic Surgery (left foot bone spurs) Patient denies;: Implanted Devices, Spinal Surgery, Total Hip Replacement, Total Knee Replacement - Family History Family History: Reports;: Family Diabetes (Mother, Father, Brother), Family Heart Disease (Sister), Family Hypertension (Mother, Father, Brother, Sister), Family Stroke Denies;: Family Cancer - Social History Smoking Status: Never smoker Frequency of Alcohol Use: None Type of Drug Use: None Results - Labs CBC & BMP: 01/02/17 12:54 01/02/17 07:20 Lab Results: I have reviewed the past 24 hour labs
[2017-01-02] MEDS ORDERED: metFORMIN 500 MG TABLET PO SCH (17:00)
--- NOTE | 2017-01-02 17:31 | ECHO Report ---
Dayton Byrnes Exam Date: 01/02/2017 10:59 Referring Physician: Technologist: Katt PINON Age: 61 Ht (in): Wt (lb): Gender: M Exam Location: [facility] Echo Indications: A fib, edema, tachycardia BP: / HR: Rhythm: Sinus Technical Quality: IMPRESSIONS Normal left ventricular size, with moderate concentric hypertrophy, with borderline depressed systolic function and abnormal septal motion. Estimated left ventricular ejection fraction 50%. Moderately dilated right-sided heart chambers, with normal systolic function and moderate pulmonary hypertension. Moderate left atrial enlargement. Mild aortic and mitral regurgitation. MEASUREMENTS (Male / Female) Normal Values 2D ECHO LV Diastolic Diameter PLAX 4.8 cm 4.2 - 5.9 / 3.9 - 5.3 cm LV Systolic Diameter PLAX 3.5 cm LV Fractional Shortening PLAX 28.1 % IVS Diastolic Thickness 1.8 cm 0.6 - 1.0 / 0.6 - 0.9 cm LVPW Diastolic Thickness 1.5 cm 0.6 - 1.0 / 0.6 - 0.9 cm RV Internal Dim ED PLAX 4.5 cm Aortic Root Diameter 2.5 cm LA Systolic Diameter LX 4.7 cm 3.0 - 4.0 / 2.7 - 3.8 cm DOPPLER TR Peak Velocity 356.0 cm/s TR Peak Gradient 50.7 mmHg FINDINGS Left Ventricle Normal left ventricular size, with moderate concentric hypertrophy, with borderline depressed systolic function and abnormal septal motion. Estimated left ventricular ejection fraction 50%. Unable to estimate diastolic function due to arrhythmia. Right Ventricle Moderately increased right ventricular size, with rayo systolic function. Right Atrium Moderately increased right atrial size. Left Atrium Moderately increased left atrial diameter. Mitral Valve Structurally normal mitral valve, with mild regurgitation. Aortic Valve Structurally normal aortic valve, with mitral regurgitation. Tricuspid Valve Morphologically normal tricuspid valve. Severe tricuspid valve regurgitation. Tricuspid regurgitation velocities suggest a PAP of 50.7 mmHg + RAP. Pulmonic Valve Morphologically normal pulmonic valve. Pericardium No pericardial effusion. Aorta Normal size aortic root and proximal ascending aorta. Brett Luna (Electronically Signed) Final Date: 02 January 2017 17:25
[2017-01-02] MEDS: INSULIN REGULAR 100 UNIT/ML SUBCUT SCH ×2 (17:32→21:16)
[2017-01-02] MEDS ORDERED: ATORVASTATIN 40 MG TABLET PO SCH (21:00)
[2017-01-02] MEDS ORDERED: ENOXAPARIN 120 MG/0.8 ML SYRINGE SUBCUT SCH (21:00)
[2017-01-02] MEDS: CARVEDILOL 25 MG TABLET PO SCH (21:15)
[2017-01-03] MEDS: DILTIAZEM INJ 100 MG in SODIUM CHLORIDE 0.9% 100 ML IV SCH (01:12)
[2017-01-03 04:58] LABS: Basophils # 0.1 10*3/uL (0.0-0.2); Basophils % 0.4 % (0.0-0.8); Eosinophils # 0.8 10*3/uL (0.0-0.87); Eosinophils % 4.9 % (0.00-10.9); Hematocrit 38.4 VOL% (42.0-52.0); Hemoglobin 11.9 GM/DL (14.0-18.0); Immature Granulocytes % 0.3 %; Immature Granulocytes Absolute 0.05 #; Lymphocytes # 9.6 10*3/uL (1.4-4.0); Lymphocytes % 60.8 % (21.2-54.2); Mean Corpuscular Hemoglobin 21 PG (27-34); Mean Corpuscular Volume 68.4 FL (87-102); Mean Platelet Volume 11.5 FL (9.6-12.0); Monocytes # 0.9 10*3/uL (0.11-0.8); Monocytes % 5.4 % (1.7-12.7); Neutrophils # 4.4 10*3/uL (1.4-7.4); Neutrophils % 28.2 % (38.7-73.9); Platelet Count 263 T/CUMM (130-400); Red Blood Count 5.61 MC/CUMM (3.8-5.5); Red Cell Distribution Width 14.7 % (9.3-17.3); White Blood Count 15.8 T/CUMM (4-12)
[2017-01-03 05:25] LABS: Hypochromasia 1+; Ovalocytes Slight; Platelet Estimate Adequate
[2017-01-03 05:26] LABS: Microcytosis 1+
[2017-01-03 05:39] LABS: Calcium 8.4 MG/DL (8.5-10.1)
[2017-01-03 05:40] LABS: Magnesium 1.9 MG/DL (1.8-2.4); Osmolality,Calculated 282.4 MOS/KG (273-304)
[2017-01-03] MEDS ORDERED: NON-FORMULARY MEDICATION (Lisinopril [Lisinopril] 40 MG) PO SCH (09:00)
[2017-01-03] MEDS ORDERED: FUROSEMIDE 20 MG TABLET PO SCH (09:00)
[2017-01-03] MEDS ORDERED: ASPIRIN EC 81 MG TABLET PO SCH (09:00)
[2017-01-03] MEDS ORDERED: APIXABAN 5 MG TABLET PO SCH (09:00)
[2017-01-03] MEDS ORDERED: ASPIRIN EC 325 MG TABLET PO SCH (09:00)
[2017-01-03] MEDS ORDERED: DILTIAZEM CD 120 MG CAPSULE PO SCH (09:00)
[2017-01-03] MEDS ORDERED: SPIRONOLACTONE 25 MG TABLET PO SCH (09:00)
[2017-01-03] MEDS: INSULIN REGULAR 100 UNIT/ML SUBCUT SCH ×2 (09:23→12:57)
[2017-01-03] MEDS: CARVEDILOL 25 MG TABLET PO SCH (09:25)
[2017-01-03] MEDS ORDERED: FUROSEMIDE 20 MG TABLET PO ONE (11:04)
[2017-01-03] MEDS ORDERED: LISINOPRIL 20 MG TABLET PO SCH (11:30)
--- NOTE | 2017-01-03 11:49 | Cardiology Progress Note ---
<Meredith Lockhart E - Last Filed: 01/03/17 11:59> Assessment and Plan (1) Hypertension Status: Chronic Assessment and plan: SEE PLAN OF CARE LISTED BELOW (2) Hyperlipidemia Status: Chronic Assessment and plan: SEE PLAN OF CARE LISTED BELOW (3) Diabetes Status: Chronic Assessment and plan: SEE PLAN OF CARE LISTED BELOW (4) Hepatitis Status: Chronic Assessment and plan: SEE PLAN OF CARE LISTED BELOW (5) Sleep disorder Status: Chronic Assessment and plan: SEE PLAN OF CARE LISTED BELOW (6) Obesity (BMI 30.0-34.9) Status: Acute (7) CLL (chronic lymphocytic leukemia) Status: Chronic Assessment and plan: SEE PLAN OF CARE LISTED BELOW (8) Cardiomyopathy, dilated Status: Chronic Assessment and plan: SEE PLAN OF CARE LISTED BELOW (9) Elevated troponin Status: Acute Assessment and plan: SEE PLAN OF CARE LISTED BELOW (10) Edema Status: Chronic Assessment and plan: SEE PLAN OF CARE LISTED BELOW (11) Diabetes mellitus type 2 in obese Status: Chronic Assessment and plan: SEE PLAN OF CARE LISTED BELOW (12) Atrial fibrillation with RVR Status: Chronic Assessment and plan: SEE PLAN OF CARE LISTED BELOW Cardiology - PN: Subj Interval history: Mr. Byrnes is a 61 year old male previously followed by Dr. Newberry while hospitalized. He has not been seen in cardiovascular [place] at the [facility]. Last echocardiogram 02/28/2016 reveals EF 55% four-chamber cardiac enlargement, moderate pulmonary hypertension with quadrivalvular mild insufficiency. Risk factors include: Hypertension, diabetes, hyperlipidemia, obesity, sedentary lifestyle. Past medical history includes atrial fibrillation , dilated cardiomyopathy, CLL, SLL, untreated sleep apnea, hypothyroidism, hepatitis. 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 Patient tells me he's never had stress testing or cardiac catheterization. Patient was being readied for colonoscopy yesterday when she was noted to be in atrial fibrillation with rapid ventricular response, heart rate in the 180s. He was treated overnight on our telemetry unit with IV Cardizem. He's been weaned off his IV Cardizem and his heart rate is much better controlled with rates in the 60s. He remains in atrial fibrillation. He is hypertensive is morning. I obtained record of his prior medications when he was seeing Dr. Sudhir baez in clinic and I am restarting his lisinopril this morning. He also takes metformin I'll re-start this as well. Of note he was taking hydralazine 100 mg orally 3 times a day. At this point, we favor rate controlling agents that may have to reincorporate hydralazine on an outpatient basis. He is anxious for release home. I have instructed patient, we must continue to monitor him for several hours off the IV Cardizem. I'll also ask the nurses to go ahead and given a dose of lisinopril 20 mg in order to better control his blood pressure. Again, he is anxious for release home and I have instructed him that he may be possibly discharged this afternoon if we didn't get these 2 things under control. I will get him appointment to see Dr. Newberry in two weeks. He is being started on Eliquis 5 mg orally twice a day for stroke prevention. See Dr. Ybarra's note regarding rescheduling colonoscopy. Again, this was an elective colonoscopy as he was not having any problems. We will get him an appointment with Dr. Ybarra in a couple of months. Patient underwent HST last night. Dr. Hoover s following. I'll get him able to see Dr. Hoover in a couple of weeks as well. Patient denies chest pain, heaviness or tightness. He denies shortness of breath. ASSESSMENT/PLAN: 1. ATRIAL FIBRILLATION WITH RVR - remains in A. fib but rate controlled. See above for additional plan of care. 2. NON-COMPLIANCE - reiterated the merits of compliance 3. HYPERTENSION - adjust medications accordingly during the hospital several better blood pressure control. Adding BATSHEVA inhibitor, increasing Lasix. 4. HLD -Liver enzymes WNL. Restarting his home lipid lowering agent. 5. ELEVATED TROPONIN - thought to be releated to RVR. Troponin max of 0.04. 6. CLL/SLL - previously followed by Dr. Tyler. We'll consult as needed during hospital stay 7. UNTREATED SLEEP APNEA -appreciate Dr. Hoover's assistance. F/U appointment with Dr. Hoover. 8. ANEMIA - continue current plan of care 9. DIABETES - cover with sliding scale insulin until he can get his sugars well controlled on oral medications 10. CARDIOMYOPATHY, DILATED - EF 50%, see report. 11. HISTORY OF HEPATITIS - records report chronic hepatitis. 12. ALLERGY AMIODORONE - possibly contributing to congestive hepatopathy 13. ALLERGY SHRIMP - vomiting, mouth swelling 14. EDEMA - No DVT, edema improved. Adjusted his diuretics. Exam (Progress Note) - Constitutional Vitals: Period Temp Pulse Resp BP Sys/Francis Pulse Ox Last 24 Hr 97.4 F-98.7 F 58-100 16-20 159-179/80-109 92-98 Exam: General: Appears well with no apparent distress. Pleasant and cooperative. Appears comfortable. HEENT: PERRL, normocephalic, atraumatic. Mucous membranes moist. No jaundice noted. Conjunctiva moist and clear, sclerae anicteric Neck: No JVD/HJR, no thyromegaly or lymphadenopathy noted. No carotid bruit appreciated Cardiac: Irregularly irregular rhythm, controlled rate. No murmur rub or gallop. Lungs: Clear to auscultation without accessory muscle use to assist the respiratory pattern. Not requiring oxygen Abdomen: Soft, bowel sounds normoactive. Nontender and nondistended. No abdominal bruit or thrill noted. No masses noted. Musculoskeletal: No fluid collection. Decreased range of motion is noted. Extremities: No clubbing, cyanosis noted. Trace bilateral lower extremity edema. Upper extremity pulses 2+. Lower extremity pulses 2+. Capillary refill less than 3 seconds. Skin: No unusual lesions or rashes. No skin breakdown appreciated. Neuro: Awake, alert and oriented 3. Moves all extremities well without hemiparesis or paralysis. No essential tremor is appreciated. Result/EKG - Labs CBC & BMP: 01/03/17 04:15 01/03/17 04:15 Lab Results: I have reviewed the past 24 hour labs Labs: Laboratory Results - last 24 hr 01/02/17 01/02/17 01/02/17 12:54 15:17 21:01 WBC 19.6 H RBC 6.04 H Hgb 13.0 L Hct 42.7 MCV 70.7 L MCH 22 L MCHC 30.4 L RDW 15.1 Plt Count 278 MPV 10.7 Neut % (Auto) 18.6 L Lymph % (Auto) 72.9 H Dickey % (Auto) 4.2 Eos % (Auto) 3.6 Baso % (Auto) 0.5 Neut # (Auto) 3.6 Lymph # (Auto) 14.3 H Dickey # (Auto) 0.8 Eos # (Auto) 0.7 Baso # (Auto) 0.1 Total Counted 100 Immature Gran % 0.2 Nucleated RBC % 0.0 Immature Gran # 0.04 Segmented Neutrophils 27 L Lymphocytes 65 H Monocytes 2 Eosinophils 6 Nucleated RBCs # 0.00 Atypical Lymphocytes 1+ Smudge Cells Few Platelet Estimate Normal Hypochromasia Slight Microcytosis 1+ Ovalocytes Morphology Comment Sodium Potassium Chloride Carbon Dioxide Anion Gap BUN Creatinine GFR Calculation BUN/Creatinine Ratio Glucose POC Glucose 150 H 126 H Calculated Osmolality Calcium Magnesium 01/03/17 01/03/17 01/03/17 04:15 04:15 07:23 WBC 15.8 H RBC 5.61 H Hgb 11.9 L Hct 38.4 L MCV 68.4 L MCH 21 L MCHC 31.0 L RDW 14.7 Plt Count 263 MPV 11.5 Neut % (Auto) 28.2 L Lymph % (Auto) 60.8 H Dickey % (Auto) 5.4 Eos % (Auto) 4.9 Baso % (Auto) 0.4 Neut # (Auto) 4.4 Lymph # (Auto) 9.6 H Dickey # (Auto) 0.9 H Eos # (Auto) 0.8 Baso # (Auto) 0.1 Total Counted Immature Gran % 0.3 Nucleated RBC % 0.0 Immature Gran # 0.05 Segmented Neutrophils Lymphocytes Monocytes Eosinophils Nucleated RBCs # 0.00 Atypical Lymphocytes Smudge Cells Platelet Estimate Adequate Hypochromasia 1+ Microcytosis 1+ Ovalocytes Slight Morphology Comment Sodium 140 Potassium 4.0 Chloride 104 Carbon Dioxide 26 Anion Gap 14.0 BUN 13 Creatinine 0.70 GFR Calculation 179 BUN/Creatinine Ratio 18.00 Glucose 168 H POC Glucose 144 H Calculated Osmolality 282.4 Calcium 8.4 L Magnesium 1.9 - Diagnostic Findings Procedure: Chest x-ray: report reviewed by me, Ultrasound: report reviewed by me - EKG EKG results: interpreted by me EKG shows: atrial fibrillation Specialty Discharge - Follow Up or Referrals Follow up with: Zeeshan Tyler MD [Physician] - (Keep routine follow-up) Elizabeth Hoover MD [Physician] - 1 Month Marcia Newberry DO [Primary Care Provider] - 01/17/17 10:30 am (BMP, Mg, CBC) Matthew Ybarra MD [Physician] - 07/03/17 9:30 am (6 months ) <Brett Luna - Last Filed: 01/03/17 20:37> Cardiology - PN: Subj Interval history: Interviewed and examined the patient myself, discussed findings with the nurse practitioner. Agree with the A&P. FU with dr. Newberry. Exam (Progress Note) - Constitutional Vitals: Period Temp Pulse Resp BP Sys/Francis Pulse Ox Last 24 Hr 97.4 F-98.6 F 58-100 16-20 131-179/63-109 92-97 Result/EKG - Labs CBC & BMP: 01/03/17 04:15 01/03/17 04:15 Labs: Laboratory Results - last 24 hr 01/02/17 01/03/17 01/03/17 21:01 04:15 04:15 WBC 15.8 H RBC 5.61 H Hgb 11.9 L Hct 38.4 L MCV 68.4 L MCH 21 L MCHC 31.0 L RDW 14.7 Plt Count 263 MPV 11.5 Neut % (Auto) 28.2 L Lymph % (Auto) 60.8 H Dickey % (Auto) 5.4 Eos % (Auto) 4.9 Baso % (Auto) 0.4 Neut # (Auto) 4.4 Lymph # (Auto) 9.6 H Dickey # (Auto) 0.9 H Eos # (Auto) 0.8 Baso # (Auto) 0.1 Immature Gran % 0.3 Nucleated RBC % 0.0 Immature Gran # 0.05 Nucleated RBCs # 0.00 Platelet Estimate Adequate Hypochromasia 1+ Microcytosis 1+ Ovalocytes Slight Morphology Comment Sodium 140 Potassium 4.0 Chloride 104 Carbon Dioxide 26 Anion Gap 14.0 BUN 13 Creatinine 0.70 GFR Calculation 179 BUN/Creatinine Ratio 18.00 Glucose 168 H POC Glucose 126 H Calculated Osmolality 282.4 Calcium 8.4 L Magnesium 1.9 01/03/17 01/03/17 01/03/17 07:23 12:22 15:28 WBC RBC Hgb Hct MCV MCH MCHC RDW Plt Count MPV Neut % (Auto) Lymph % (Auto) Dickey % (Auto) Eos % (Auto) Baso % (Auto) Neut # (Auto) Lymph # (Auto) Dickey # (Auto) Eos # (Auto) Baso # (Auto) Immature Gran % Nucleated RBC % Immature Gran # Nucleated RBCs # Platelet Estimate Hypochromasia Microcytosis Ovalocytes Morphology Comment Sodium Potassium Chloride Carbon Dioxide Anion Gap BUN Creatinine GFR Calculation BUN/Creatinine Ratio Glucose POC Glucose 144 H 125 H 225 H Calculated Osmolality Calcium Magnesium
--- NOTE | 2017-01-03 12:55 | Sleep Medicine Progress Note ---
Assessment and Plan (1) Diabetes mellitus type 2 in obese Status: Chronic Current Visit: No (2) Atrial fibrillation with RVR Status: Chronic Current Visit: Yes (3) Obstructive sleep apnea Status: Acute Assessment and plan: This patient does have severe obstructive sleep apnea by HST evaluation. We will schedule him for follow-up in the sleep clinic on CPAP therapy. Current Visit: Yes Sleep Medicine Subjective Interval history: Patient did have evidence of severe obstructive sleep apnea by a chest tape. He had an overall AHI of 68.3 with severe O2 desaturation to low dose of 71%. He clearly would benefit from CPAP therapy. We will get him set up with a DME provider with auto titration CPAP and see him in follow-up in the sleep clinic for compliance purposes. Thank you for this consult and the opportunity to participate in his care. Exam (Progress Note) - Constitutional Vitals: Period Temp Pulse Resp BP Sys/Francis Pulse Ox Last 24 Hr 97.4 F-98.7 F 58-100 16-20 131-179/63-109 92-98 Results - Labs CBC & BMP: 01/03/17 04:15 01/03/17 04:15 Lab Results: I have reviewed the past 24 hour labs
--- NOTE | 2017-01-03 13:57 | Discharge Summary ---
Hospital Course - Hospital Course Hospital Course: Mr. Byrnes is a 61 year old male previously followed by Dr. Newberry while hospitalized. He has not been seen in Cardiovascular [place] [facility]. Last echocardiogram 02/28/2016 reveals EF 55% four-chamber cardiac enlargement, moderate pulmonary hypertension with quadrivalvular mild insufficiency. Risk factors include: hypertension, diabetes, hyperlipidemia, obesity, sedentary lifestyle. Past medical history includes atrial fibrillation , dilated cardiomyopathy, CLL, SLL, untreated sleep apnea, hypothyroidism, hepatitis. 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 He has never had stress testing or cardiac catheterization. Patient was being readied for colonoscopy the morning of admission when he was noted to be in atrial fibrillation with rapid ventricular response, heart rate in the 180s. He was treated overnight on our telemetry unit with IV Cardizem. He's been weaned off his IV Cardizem and his heart rate is much better controlled with rates in the 60s. He remains in atrial fibrillation. Adjustments in medications ensued to better control his blood pressure. (He admitted to being out of his cardiac medications for several weeks and possibly months prior to admission.) Patient had previously declined NOAC but agreeable to start today. He is being discharged with Rx Eliquis 5mg orally BID. Again, he is anxious for release home and I have instructed him that he may be possibly discharged this afternoon if we didn't get these 2 things under control. I will get him appointment to see Dr. Newberry in two weeks. He is being started on Eliquis 5 mg orally twice a day for stroke prevention. See Dr. Ybarra's note regarding rescheduling colonoscopy. Again, this was an elective colonoscopy as he was not having any problems. We will get him an appointment with Dr. Ybarra in a couple of months. Patient underwent HST last night. Dr. Hoover is following. He is being set up for sleep device and will have routine follow-up in one month. Having felt he met maximal medical therapy, and anxious for release home, patient is being discharged home in stable condition. Charge medications include the following: Eliquis 5 g orally twice a day Coreg 25mg orally BID Lisinopril 20mg orally BID Atorvastatin 20mg orally each evening Lasix 40mg orally daily Spironolactone 25mg orally daily Diltiazem CD 120mg orally BID Metformin 500mg orally BID - Time spent with patient Time with patient DS: Greater than 30 minutes Diagnosis - Discharge Diagnosis (1) Hypertension Status: Chronic (2) Hyperlipidemia Status: Chronic (3) Diabetes Status: Chronic (4) Hepatitis Status: Chronic (5) Sleep disorder Status: Chronic (6) Obesity (BMI 30.0-34.9) Status: Chronic (7) CLL (chronic lymphocytic leukemia) Status: Chronic (8) Cardiomyopathy, dilated Status: Chronic (9) Elevated troponin Status: Resolved (10) Edema Status: Chronic (11) Diabetes mellitus type 2 in obese Status: Chronic (12) Atrial fibrillation with RVR Status: Chronic Specialty Discharge - Follow Up or Referrals Follow up with: Marcia Newberry DO [Primary Care Provider] - 2 Weeks (BMP, Mg, CBC) Zeeshan Tyler MD [Physician] - (Keep routine follow-up) Matthew Ybarra MD [Physician] - (6 months ) Elizabeth Hoover MD [Physician] - 1 Month Discharge Plan - Discharge Data Disposition: Disch To Home/Self Care Condition at Discharge: Stable Discharge Diet: heart healthy Activity: resume usual activities as tolerated Hygiene: no restrictions Weight Bearing at Discharge: full weight bearing Driving: no restrictions Contact your physician if you experience:: fever over 101, Difficulty voiding, Redness or swelling, Nausea/Vomiting, Shortness of breath, Bleeding, pain uncontrolled by pain medications - Discharge Medications New Carvedilol [Coreg] 25 mg PO BID #60 tablet metFORMIN [Glucophage] 500 mg PO BID W/MEALS #60 tablet Apixaban [Eliquis] 5 mg PO BID #60 tablet Aspirin EC Tab 81 mg PO DAILY #30 tablet Atorvastatin [Lipitor] 20 mg PO BEDTIME #30 tablet Diltiazem Cd Cap [Cardizem CD] 120 mg PO BID #60 capsule Furosemide Tab [Lasix Tab] 40 mg PO DAILY #30 tablet Lisinopril [Prinivil] 20 mg PO BID #60 tablet Spironolactone [Aldactone] 25 mg PO DAILY #30 tablet - Follow Up or Referral - Forms/Instructions Additional Discharge Instructions: Please give Eliquis card at discharge. Please have him see his PCP as well within 2 weeks Exam - Constitutional Vitals: Period Temp Pulse Resp BP Sys/Francis Pulse Ox Last 24 Hr 97.4 F-98.7 F 58-100 16-20 131-179/63-109 92-98 Exam: General: Appears well with no apparent distress. Pleasant and cooperative. Appears comfortable. HEENT: PERRL, normocephalic, atraumatic. Mucous membranes moist. No jaundice noted. Conjunctiva moist and clear, sclerae anicteric Neck: No JVD/HJR, no thyromegaly or lymphadenopathy noted. No carotid bruit appreciated Cardiac: Irregularly irregular rhythm, controlled rate. No murmur rub or gallop. Lungs: Clear to auscultation without accessory muscle use to assist the respiratory pattern. Not requiring oxygen Abdomen: Soft, bowel sounds normoactive. Nontender and nondistended. No abdominal bruit or thrill noted. No masses noted. Musculoskeletal: No fluid collection. Decreased range of motion is noted. Extremities: No clubbing, cyanosis noted. Trace bilateral lower extremity edema. Upper extremity pulses 2+. Lower extremity pulses 2+. Capillary refill less than 3 seconds. Skin: No unusual lesions or rashes. No skin breakdown appreciated. Neuro: Awake, alert and oriented 3. Moves all extremities well without hemiparesis or paralysis. No essential tremor is appreciated. Discharge Results Labs on day of discharge: Labs from last 24 hours 01/03/17 01/03/17 01/03/17 12:22 07:23 04:15 WBC RBC Hgb Hct MCV MCH MCHC RDW Plt Count MPV Neut % (Auto) Lymph % (Auto) [place] % (Auto) Eos % (Auto) Baso % (Auto) Neut # (Auto) Lymph # (Auto) [place] # (Auto) Eos # (Auto) Baso # (Auto) Total Counted Immature Gran % Nucleated RBC % Immature Gran # Segmented Neutrophils Lymphocytes Monocytes Eosinophils Nucleated RBCs # Atypical Lymphocytes Smudge Cells Platelet Estimate Hypochromasia Microcytosis Ovalocytes Morphology Comment Sodium 140 Potassium 4.0 Chloride 104 Carbon Dioxide 26 Anion Gap 14.0 BUN 13 Creatinine 0.70 GFR Calculation 179 BUN/Creatinine Ratio 18.00 Glucose 168 H POC Glucose 125 H 144 H Calculated Osmolality 282.4 Calcium 8.4 L Magnesium 1.9 01/03/17 01/02/17 01/02/17 04:15 21:01 15:17 WBC 15.8 H RBC 5.61 H Hgb 11.9 L Hct 38.4 L MCV 68.4 L MCH 21 L MCHC 31.0 L RDW 14.7 Plt Count 263 MPV 11.5 Neut % (Auto) 28.2 L Lymph % (Auto) 60.8 H [place] % (Auto) 5.4 Eos % (Auto) 4.9 Baso % (Auto) 0.4 Neut # (Auto) 4.4 Lymph # (Auto) 9.6 H [place] # (Auto) 0.9 H Eos # (Auto) 0.8 Baso # (Auto) 0.1 Total Counted Immature Gran % 0.3 Nucleated RBC % 0.0 Immature Gran # 0.05 Segmented Neutrophils Lymphocytes Monocytes Eosinophils Nucleated RBCs # 0.00 Atypical Lymphocytes Smudge Cells Platelet Estimate Adequate Hypochromasia 1+ Microcytosis 1+ Ovalocytes Slight Morphology Comment Sodium Potassium Chloride Carbon Dioxide Anion Gap BUN Creatinine GFR Calculation BUN/Creatinine Ratio Glucose POC Glucose 126 H 150 H Calculated Osmolality Calcium Magnesium 01/02/17 12:54 WBC 19.6 H RBC 6.04 H Hgb 13.0 L Hct 42.7 MCV 70.7 L MCH 22 L MCHC 30.4 L RDW 15.1 Plt Count 278 MPV 10.7 Neut % (Auto) 18.6 L Lymph % (Auto) 72.9 H [place] % (Auto) 4.2 Eos % (Auto) 3.6 Baso % (Auto) 0.5 Neut # (Auto) 3.6 Lymph # (Auto) 14.3 H [place] # (Auto) 0.8 Eos # (Auto) 0.7 Baso # (Auto) 0.1 Total Counted 100 Immature Gran % 0.2 Nucleated RBC % 0.0 Immature Gran # 0.04 Segmented Neutrophils 27 L Lymphocytes 65 H Monocytes 2 Eosinophils 6 Nucleated RBCs # 0.00 Atypical Lymphocytes 1+ Smudge Cells Few Platelet Estimate Normal Hypochromasia Slight Microcytosis 1+ Ovalocytes Morphology Comment Sodium Potassium Chloride Carbon Dioxide Anion Gap BUN Creatinine GFR Calculation BUN/Creatinine Ratio Glucose POC Glucose Calculated Osmolality Calcium Magnesium - Imaging and Cardiology Cardiology Procedure: report reviewed by me Procedure: Chest x-ray: report reviewed by me, Ultrasound: report reviewed by me DS: Provider Date of admission: 01/02/17 10:19 Primary care physician: Marcia Newberry DO Attending physician on admission: Brett Luna MD Consults: 01/02/17 10:34 Consult to Physician [CONS] Routine Comment: Consult Dr. Ybarra RE: known to you Consulting Provider: Matthew Ybarra Consult to Specialist Group: Gastroenterology Person Notified: CHRISTOPHER Date Notified: 01/02/17 Time Notified: 12:35 01/02/17 11:06 Consult to Sleep Center [CONS] Routine Reason for Sleep Center: Sleep Center Physician Consult Comment: SLEEP DISORDER Discharging clinician: Meredith Lockhart NP Expected date of discharge: 01/03/17
[2017-01-03 16:19] VITALS: BP 152/74
[2017-01-03] MEDS ORDERED: ATORVASTATIN 20 MG TABLET PO SCH (21:00)
[2017-01-04] MEDS ORDERED: FUROSEMIDE 40 MG TABLET PO SCH (09:00)
== END 2017-01-03 17:36 | disposition home or self-care (01) ==
LOC: EDBD → EDUNIT# → N.EDINP 07:02 → N.ED 07:02 → N.TELES 11:00
PROVIDERS: ADMIT Internal Medicine Clinical Cardiac Electrophysiology; ATTEND Internal Medicine Clinical Cardiac Electrophysiology

== ENCOUNTER 2017-07-09 09:13 | Inpatient (IN) ==
[2017-07-09 10:06] LABS: Basophils % 0.1 % (0.0-0.8); Hematocrit 42.2 VOL% (42.0-52.0); Hemoglobin 13.4 GM/DL (14.0-18.0); Immature Granulocytes % 0.4 %; Immature Granulocytes Absolute 0.11 #; Lymphocytes # 18.9 10*3/uL (1.4-4.0); Lymphocytes % 68.1 % (21.2-54.2); Mean Corpuscular HGB Conc 31.8 GM/DL (32-36); Mean Corpuscular Hemoglobin 22 PG (27-34); Mean Corpuscular Volume 69.9 FL (87-102); Monocytes # 0.3 10*3/uL (0.11-0.8); Monocytes % 1.2 % (1.7-12.7); Neutrophils # 8.4 10*3/uL (1.4-7.4); Neutrophils % 30.2 % (38.7-73.9); Platelet Count 340 T/CUMM (130-400); Red Blood Count 6.04 MC/CUMM (3.8-5.5); Red Cell Distribution Width 17.2 % (9.3-17.3); White Blood Count 27.8 T/CUMM (4-12)
[2017-07-09 10:25] LABS: Apearance,Urine CLEAR (Clear); Bilirubin,Urine Negative (Negative); Blood, Urine Negative (Negative); Glucose,Urine (UA) Negative (Negative); Hyaline Casts,Urine 22 /LPF (0-3); INR 1.1; Ketones,Urine Negative (Negative); Mucus,Urine Occasional /LPF (Occasional); Nitrite,Urine Negative (Negative); PT Patient Result 11.4 SECS; Protein,Urine Negative; RBC,Urine <1 /HPF (0-4); Squamous Epithelial Cell,Urine Occasional /HPF (0-10); Urine Color Yellow (Yellow); Urine Specific Gravity 1.008 (1.001-1.035); WBC,Urine <1 /HPF (0-6)
[2017-07-09 10:26] LABS: Eosinophils 1 % (0-10); Hypochromasia 1+; Lymphocytes 62 % (20-55); Microcytosis 1+; Segmented Neutrophils 36 % (50-85); Total Cells Counted 100
[2017-07-09 10:27] LABS: Ovalocytes Slight; Platelet Estimate Normal
[2017-07-09 10:42] LABS: Albumin 3.3 G/DL (3.4-5.0); Bilirubin,Total 0.6 MG/DL (0.2-1.0); Calcium 9.3 MG/DL (8.5-10.1); Potassium 4.3 MMOL/L (3.5-5.1); Total Protein 8.8 G/DL (6.4-8.3)
--- NOTE | 2017-07-09 10:46 | XRay Report ---
Portable chest Date: 07/09/2017 Clinical history: Cardiomegaly Comparison: 01/02/2017 Technique: Portable AP sitting chest Findings: The heart is smaller in size with less prominent pulmonary vasculature. Interval resolution of the parenchymal findings in the lungs with minimal chronic scarring. Stable mediastinum with degenerative changes. Impression: No acute cardiopulmonary pathology identified with resolved mild CHF. PROCEDURE INTERPRETED AT [facility] DEPARTMENT OF RADIOLOGY Final Report Signed by: Dr. Jessica Carmona
--- NOTE | 2017-07-09 10:47 | CT Report ---
CT head/brain wo con Indication: Hemiparesis Comparison: None Technique: Multiple axial tomographic images of the brain were obtained without the use of intravenous contrast. Findings: Midline structures are nondisplaced. There is no convincing evidence of acute intracranial hemorrhage . Mild global volume loss present. Moderate periventricular and subcortical hypoattenuation noted which is nonspecific but consistent with chronic microvascular ischemic change. Demyelinating process and vasculitis less likely considerations. Mild mucosal thickening of the ethmoid air cells. Mastoid air cells clear. IMPRESSION: No acute intracranial abnormality demonstrated. Probable chronic microvascular ischemic change and volume loss. Consider MRI of the brain for further evaluation. The CT exam was performed using one or more of the following dose reduction techniques: Automated exposure control, adjustment of the mA and/or kV according to patient size, or use of iterative reconstruction technique. PROCEDURE INTERPRETED AT [facility] DEPARTMENT OF RADIOLOGY Final Report Signed by: Dr Morris Phillips
--- NOTE | 2017-07-09 11:05 | Emergency Department Note ---
Agustín Srivastava Hilary, am scribing for, and in the presence of, Rahul Laughlin MD 09:49. Truman Srivastava Phillip K, MD, personally performed the services described in this documentation, ascribed by Arin Randolph in my presence, and it is both accurate and complete . Arrival - Arrival Chief Complaint: Neuro Stated Complaint: Weak, left arm and tongue swollen ED Nursing Triage Note: pt has lt arm weakness. 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 onset yesterday morning Mode of Arrival: Wheelchair Limitations: No Limitations Source: Patient, RN Notes Reviewed - History of Present Illness HPI Narrative: Pt is a 61 y/o presenting to the ED with left arm weakness which onset yesterday but worsened this morning. He states that he ate shrimp last night and his tongue started to swell. 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 No other complaints or problems stated in the ED. Onset (ago): day(s) Consistency: constant Severity: mild Severity scale (1-10): 1 Quality: other (weakness) Allergies/Adverse Reactions: Allergies Allergy/AdvReac Type Severity Reaction Status Date / Time Shrimp Allergy Unknown Unknown/Unable Verified 01/02/17 07:08 to obtain sulfamethoxazole Allergy Unknown Unknown/Unable Verified 01/02/17 07:08 [From Bactrim] to obtain trimethoprim [From Bactrim] Allergy Unknown Unknown/Unable Verified 01/02/17 07: 08 to obtain amiodarone AdvReac Verified 01/02/17 17:49 Home Medications: Home Medications Medication Instructions Recorded Confirmed Type Apixaban [Eliquis] 5 mg PO BID #60 tablet 01/03/17 Rx Aspirin EC Tab 81 mg PO DAILY #30 tablet 01/03/17 Rx Atorvastatin [Lipitor] 20 mg PO BEDTIME #30 tablet 01/03/17 Rx Carvedilol [Coreg] 25 mg PO BID #60 tablet 01/03/17 Rx Diltiazem Cd Cap [Cardizem CD] 120 mg PO BID #60 capsule 01/03/17 Rx Furosemide Tab [Lasix Tab] 40 mg PO DAILY #30 tablet 01/03/17 Rx Lisinopril [Prinivil] 20 mg PO BID #60 tablet 01/03/17 Rx Spironolactone [Aldactone] 25 mg PO DAILY #30 tablet 01/03/17 Rx metFORMIN [Glucophage] 500 mg PO BID W/MEALS #60 tablet 01/03/17 Rx Review of System - Review of System 12 point system: reviewed and no additional remarkable complaints except as stated - Review of System Constitutional: Present: weakness. Absent: fever Head/Ears/Nose/Throat: Present: other (tongue sweaking) Gastrointestinal: Absent: abdominal pain Neurological: Present: weakness. Absent: numbness Medical,Surgical,& Family Hx - Medical History Cardio: History of: Cardiac Dysrhythmia (A. fib), CHF, Hypertension No history of: [place], Valvular Heart Disease Neurology: No history of: Cerebrovascular Accident, Seizures Endocrine: History of: Diabetes Mellitus (NIDDM), Dyslipidemia Rheumatology: History of;: Rheumatoid Arthritis (in 2003) Respiratory: History of: Asthma, Obstructive Sleep Apnea (Pt did f/u) Gastrointestinal: History of: Liver Problems (Elevated liver enzymes in the past ) Musculoskeletal: History of: Musculoskeletal Problems (arthritis) No history of: Amputation - Surgical History Cardiac Surgeries: Patient Denies: Cardiac Catheterization Thoracic Surgeries: Patient denies;: Organ Transplant, Lobectomy Neurologic Surgeries: Patient denies: Neurologic Surgery HEENT Surgeries: Patient denies: Eye Surgery, Tonsilectomy & Adenoidectomy Abdominal Surgeries: Surgical HX of: Abdominal Surgery Patient denies: Appendectomy, Cholecystectomy, Colonoscopy, Gastric Bypass Surgery, EGD, Hernia Repair Reproductive Surgeries: Patient denies;: Genitourinary Surgery Orthopedic Surgeries: Surgical HX of;: Orthopedic Surgery (left foot bone spurs) Patient denies;: Implanted Devices, Spinal Surgery, Total Hip Replacement, Total Knee Replacement - Family History Family History: Reports;: Family Diabetes (Mother, Father, Brother), Family Heart Disease (Sister), Family Hypertension (Mother, Father, Brother, Sister), Family Stroke Denies;: Family Cancer - Social History Smoking Status: Never smoker Frequency of Alcohol Use: Rarely Type of Drug Use: None Exam Vital Signs: Vital Signs Temperature 97.7 F 07/09/17 09:16 Pulse Rate 86 07/09/17 11:00 Respiratory Rate 20 07/09/17 11:00 Blood Pressure 106/65 07/09/17 11:00 O2 Sat by Pulse Oximetry 95 07/09/17 11:00 - General General appearance: alert, in no apparent distress - Head Head exam: Present: atraumatic, normocephalic - Eye Eye exam: Present: normal appearance, PERRL, EOMI - ENT ENT exam: Present: mucous membranes moist, TM's normal bilaterally, other (left side of tongue and upper lip is swollen). Absent: mucous membranes dry - Neck Neck exam: Present: full ROM, trachea midline. Absent: tenderness - Chest Chest inspection: Present: symmetric chest wall rise. Absent: tenderness - Respiratory Respiratory exam: Present: normal lung sounds bilaterally. Absent: respiratory distress - Cardiovascular Cardiovascular exam: Present: regular rate, normal rhythm, normal heart sounds. Absent: murmur, rubs, gallop - Abdominal Exam Abdominal exam: Present: soft, normal bowel sounds. Absent: distention, tenderness - Extremities Exam Extremities exam: Present: full ROM. Absent: tenderness - Back Exam Back exam: Present: full ROM. 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 Sensory is normal) - Psychiatric Psychiatric exam: Present: normal affect, normal mood - Skin Skin exam: Present: warm, dry, intact, normal color. Absent: rash Course Course Narrative: Patient discussed with the hospitalist. Results - Labs CBC & BMP: 07/09/17 09:57 07/09/17 09:57 Lab Results: I have reviewed the patients labs Labs: Laboratory Tests 07/09/17 09:57 WBC 27.8 H RBC 6.04 H Hgb 13.4 L MCV 69.9 L MCH 22 L MCHC 31.8 L Plt Count 340 Neut % (Auto) 30.2 L Lymph % (Auto) 68.1 H Hyde % (Auto) 1.2 L Neut # (Auto) 8.4 H Lymph # (Auto) 18.9 H Laboratory Tests 07/09/17 07/09/17 07/09/17 09:57 09:57 09:57 Total Counted 100 Segmented Neutrophils 36 L Lymphocytes 62 H Monocytes 1 L INR 1.1 PT Patient/Control Mix 11.4 Urine pH 5.0 Ur Specific [place] 1.008 Urine Urobilinogen 2.0 H Urine RBC <1 Urine WBC <1 Hyaline Casts 22 Laboratory Tests 07/09/17 09:57 Sodium 136 Potassium 4.3 Chloride 101 Carbon Dioxide 27 Glucose 204 H Alkaline Phosphatase 161 H Total Protein 8.8 H Albumin 3.3 L Globulin 5.5 H Albumin/Globulin Ratio 0.6 L - Diagnostic Findings Procedure: Chest x-ray: report reviewed by me (No acute cardiopulmonary pathology identified with resolved mild CHF), CT: report reviewed by me (HEAD: No acute intracranial abnormality demonstrated. Probable chronic microvascular ischemic change and volume loss. Consider MRI of the brain for further evaluation) Disposition Clinical Impression: Probable CVA, Angioedema, Elevated WBC count, Elevated serum globulin level Case discussed with: patient, patient's family Disposition: Still a Patient Condition: Guarded Additional Instructions: Admit to the hospitalist.
--- NOTE | 2017-07-09 11:38 | EKG Report ---
Stationary ECG Study [facility] ER Test Date: 07/09/2017 11:36 AM Pat Name: LALO GUPTA Department: Room: Gender: M Development Executive: : 1955 Requested by: Rahul Ochoa Order Number: [id number] Reading MD: JOHNSON RUIZ Intervals [place] Rate: 90 P: 999 NH: 0 QRS: 16 QRSD: 102 T: 52 QT: 388 QTc: 436 Interpretive Statements ATRIAL FIBRILLATION WITH ABERRANT CONDUCTION OR VENTRICULAR PREMATURE COMPLEXES ABNORMAL RHYTHM ECG Electronically Signed On 07-09-17 15:43:39 CDT by JOHNSON RUIZ [email or web address]
--- NOTE | 2017-07-09 12:20 | Hospitalist History & Physical ---
<Kizzy Pastrana - Last Filed: 07/09/17 12:37> Assessment and Plan - Time spent with patient Time spent with patient: Greater than 30 minutes (1) Acute left-sided weakness Status: Acute Assessment and plan: Admit. Consult Neurology. Start IV fluids. MRI, MRA, Echo, Carotid dopplers. Further recommendations of care to follow per Dr Lowery. Current Visit: Yes (2) Angioedema Status: Acute Assessment and plan: Lisinopril vs exposure to shrimp (allergy). Improving. Start fluids and steroids. PRN Benadryl. Current Visit: Yes (3) Leukocytosis Status: Acute Current Visit: Yes History of Present Illness Chief complaint: left arm numbness/weakness and lip/tongue swelling History of present illness: Mr. Byrnes is a 61 year old black male w/ PMHx of chronic AFib, HtN, DM, arthritis, sleep apnea, and leukemia presented to the ED for further evaluation of left arm and hand extreme weakness and c/o left sided upper lip swelling and tongue swelling with onset yesterday around 11 after eating lunch. Patient reports around 11 he became extremely weak in left arm and hand and is about the same today. Patient reports he is allergic to shrimp and that he ate out at a restaurant, he had chicken but they also serve shrimp, he wonders if he was exposed to the same grease that was used to cook shrimp. He took a benadryl after symptoms started and took another benadryl this a.m with some improvement in lip and tongue swelling. Patient is on Lisinopril and reports taking medications as directed and has not had any problems till now. Noted that patient was sent home on [facility] last admission 01/03/17 due to history of chronic Afib but patient admits to not taking medication and not taking any aspirin. He denies chest pain, shortness of breath, fever or chills. He reports a shot of whiskey about 1 or twice a month. Denies smoking or drug use. IN ED: CXR: nothing acute. Head CT: nothing acute. EKG Afib with PVCs. LABS: WBC 27.8, Glucose 204, Urinalysis negative. PCP: Dr Davila Local Delivery Truck Driver: Dr Newberry. Oncologist: Dr Tyler After discussion with Dr Laughlin in the ED and Dr Lowery with [facility] , it was agreed to admit patient to monitored bed. home medications will be reviewed and reconciliation to follow. Home Medications Medication Instructions Recorded Confirmed Type metFORMIN [Glucophage] 500 mg PO BID W/MEALS #60 tablet 01/03/17 07/09/17 Rx Aspirin EC Tab 81 mg PO QAM 07/09/17 07/09/17 History Atorvastatin [Lipitor] 20 mg PO QAM 07/09/17 07/09/17 History Diltiazem Cd Cap [Cardizem CD] 240 mg PO QAM 07/09/17 07/09/17 History Furosemide Tab [Lasix Tab] 40 mg PO QAM 07/09/17 07/09/17 History Lisinopril 40 mg PO QAM 07/09/17 07/09/17 History Spironolactone [Aldactone] 25 mg PO QAM 07/09/17 07/09/17 History hydroCHLOROthiazide 25 mg PO QAM 07/09/17 07/09/17 History [Hydrochlorothiazide] Allergies Allergy/AdvReac Type Severity Reaction Status Date / Time Shrimp Allergy Unknown Unknown/Unable Verified 01/02/17 07:08 to obtain sulfamethoxazole Allergy Unknown Unknown/Unable Verified 01/02/17 07:08 [From Bactrim] to obtain trimethoprim [From Bactrim] Allergy Unknown Unknown/Unable Verified 01/02/17 07: 08 to obtain amiodarone AdvReac Verified 01/02/17 17:49 Medical,Surgical,& Family Hx - Medical History Cardio: History of: Cardiac Dysrhythmia (A. fib), CHF, Hypertension No history of: [place], Valvular Heart Disease Neurology: No history of: Cerebrovascular Accident, Seizures Endocrine: History of: Diabetes Mellitus (NIDDM), Dyslipidemia Rheumatology: History of;: Rheumatoid Arthritis (in 2003) Respiratory: History of: Asthma, Obstructive Sleep Apnea (Pt did f/u) Gastrointestinal: History of: Liver Problems (Elevated liver enzymes in the past ) Musculoskeletal: History of: Musculoskeletal Problems (arthritis) No history of: Amputation - Surgical History Cardiac Surgeries: Patient Denies: Cardiac Catheterization Thoracic Surgeries: Patient denies;: Organ Transplant, Lobectomy Neurologic Surgeries: Patient denies: Neurologic Surgery HEENT Surgeries: Patient denies: Eye Surgery, Tonsilectomy & Adenoidectomy Abdominal Surgeries: Surgical HX of: Abdominal Surgery Patient denies: Appendectomy, Cholecystectomy, Colonoscopy, Gastric Bypass Surgery, EGD, Hernia Repair Reproductive Surgeries: Patient denies;: Genitourinary Surgery Orthopedic Surgeries: Surgical HX of;: Orthopedic Surgery (left foot bone spurs) Patient denies;: Implanted Devices, Spinal Surgery, Total Hip Replacement, Total Knee Replacement - Family History Family History: Reports;: Family Diabetes (Mother, Father, Brother), Family Heart Disease (Sister), Family Hypertension (Mother, Father, Brother, Sister), Family Stroke Denies;: Family Cancer - Social History Smoking Status: Never smoker Frequency of Alcohol Use: Rarely Type of Drug Use: None Marital Status: Single Lives With:: Significant Other Functional capacity: independent ambulation 12 point system: reviewed and no additional remarkable complaints except as stated Exam - Constitutional Vitals: Period Temp Pulse Resp BP Sys/Francis Pulse Ox Last 24 Hr 97.7 F-97.7 F 86-91 18-20 89-151/59-95 94-98 General appearance: normal weight, no acute distress Exam: Upon exam: Patient alert, awake and oriented x3. No slurred speech noted. He had left tongue deviation with slight tongue swelling more to the left side. Left sided upper lip swelling. 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 Able to move appropriately the left leg and foot without any noted weakness or numbness with appropriate sensation to touch. - Head Head exam: Present: normal inspection - Eye Eye exam: Present: EOMI Pupils: Present: KALEB - ENT ENT exam: Present: other (left upper lip swelling and lift side of tongue swelling, left sided tongue deviation) - Neck Neck exam: Present: normal inspection. Absent: thyromegaly - Respiratory Respiratory exam: Present: clear to auscultation bilaterally. Absent: stridor, wheezes - Cardiovascular Cardiovascular exam: Present: irregular rhythm (chronic afib at a controlled rate (90's)) - GI/Abdominal GI/Abdominal exam: Present: normal bowel sounds, soft. Absent: tenderness, rebound - Extremities Exam Extremities exam: Present: normal inspection, full ROM, other (left arm and hand extreme weakness without numbness or tingling). 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 Absent: swelling, tenderness, pain Elbow exam: Present: normal inspection Forearm wrist exam: Present: normal inspection Hand wrist exam: Present: normal inspection. Absent: tenderness, swelling - Neurological Exam Neurological exam: Present: alert, oriented X3, CN II-XII intact - Psychiatric Psychiatric exam: Present: normal affect, normal mood. Absent: agitated, anxious - Skin Skin exam: Present: normal color, warm, dry Results - Labs CBC & BMP: 07/09/17 09:57 07/09/17 09:57 Lab Results: I have reviewed the past 24 hour labs Quality Measures - Stroke Onset of Symptoms Date: 07/08/17 <Antoinette Lowery - Last Filed: 07/09/17 17:31> History of Present Illness History of present illness: Patient seen and examined independently of MOTORCYCLE MAKER Pastrana, agree with history, assessment and plan as documented. Patient with tongue swelling, which per patient is much improved. He also reports left arm and hand weakness, which started yesterday and has not improved today. He denies a previous history of stroke. He does have a history of CLL. He also has chronic atrial fibrillation and does not take his eliquis. Will get a MRI brain and consult neurology. Exam - Constitutional Vitals: Period Temp Pulse Resp BP Sys/Francis Pulse Ox Last 24 Hr 97.7 F-97.7 F 74-92 18-20 89-151/57-95 94-100 Results - Labs CBC & BMP: 07/09/17 09:57 07/09/17 09:57
[2017-07-09] MEDS ORDERED: LABETALOL 20 MG/4 ML SYRINGE IV PRN (12:41)
[2017-07-09 13:21] LABS: Cholesterol 118 MG/DL (50-200); HDL Cholesterol 53 MG/DL (40-60); Risk Ratio 2.23; Triglycerides 50 MG/DL (2-150); Troponin I Only < 0.015 NG/ML (0.00-0.045)
--- NOTE | 2017-07-09 14:13 | Ultrasound Report ---
Exam: Carotid ultrasound Date: 07/08/2017 Comparison: None Technique: Duplex scans of the carotid and vertebral arteries using B-mode/Bradshaw scale imaging and Doppler spectral analysis and color flow. Reason: Left arm and hand weakness Findings: The right ICA measures 7.3 mm in diameter and the left ICA measures 7.1 mm in diameter. Color-flow documented in the visualized arteries. The peak systolic velocities are as follows: Right CCA: 84.6 Right ICA: 53.3 Right ECA:78.1 Left CCA: 47.5 Left ICA: 49.8 Left ECA: 59.7 The peak systolic ICA/CCA velocity ratios are as follows: 0.6 on the right and 1.0 on the left. Antegrade flow is present in both vertebral arteries. Impression:[Less than 50% stenosis in both internal carotid arteries with no significant plaque formation. Antegrade flow in both vertebral arteries. The patient's heart rate is noted to be irregular on some of the scans obtained.] The Society of Radiologists in Ultrasound consensus conference criteria was used. The Ultrasound images were captured and stored. PROCEDURE INTERPRETED AT [facility] DEPARTMENT OF RADIOLOGY Final Report Signed by: Dr. Jessica Carmona
[2017-07-09] MEDS ORDERED: diphenhydrAMINE 50 MG/1 ML VIAL ONE (14:38)
[2017-07-09] MEDS ORDERED: methylPREDNISolone SOD SUC 40 MG/1 ML VIAL ONE (14:38)
[2017-07-09] MEDS: SODIUM CHLORIDE 0.9% 1,000 ML IV SCH (14:42)
[2017-07-09] MEDS: methylPREDNISolone SOD SUC 40 MG/1 ML VIAL IV SCH (14:42)
[2017-07-09] MEDS: diphenhydrAMINE 50 MG/1 ML VIAL IV SCH ×2 (14:43→17:36)
[2017-07-09 15:15] LABS: Barbiturates Screen,Urine Negative (Negative); Benzodiazepines Screen,Urine Negative (Negative); Cannabinoid Screen,Urine Negative (Negative); Opiate Screen,Urine Negative (Negative); Phencyclidine Screen,Urine Negative (Negative)
--- NOTE | 2017-07-09 18:06 | ECHO Report ---
Dayton Byrnes Exam Date: 07/09/2017 14:01 Referring Physician: Technologist: Shaina Etienne Age: 61 Ht (in): 75 Wt (lb): 269 Gender: M Exam Location: [facility] Echo Indications: weakness L arm BP: 106 / 65 HR: 93 Rhythm: sinus arrhythmia Technical Quality: IMPRESSIONS Left ventricular ejection fraction is estimated at 55-60 %. Mild concentric left ventricular hypertrophy. Mild bilateral atrial enlargement. Mild aortic sclerosis with trace aortic valve regurgitation. Trace tricuspid valve regurgitation. Trace mitral valve regurgitation. MEASUREMENTS (Male / Female) Normal Values 2D ECHO LV Diastolic Diameter PLAX 4.5 cm 4.2 - 5.9 / 3.9 - 5.3 cm LV Systolic Diameter PLAX 2.9 cm LV Fractional Shortening PLAX 36.6 % IVS Diastolic Thickness 1.4 cm 0.6 - 1.0 / 0.6 - 0.9 cm LVPW Diastolic Thickness 1.4 cm 0.6 - 1.0 / 0.6 - 0.9 cm Aortic Root Diameter 3.2 cm LA Systolic Diameter LX 5.4 cm 3.0 - 4.0 / 2.7 - 3.8 cm DOPPLER TR Peak Velocity 242.0 cm/s TR Peak Gradient 23.4 mmHg FINDINGS Left Ventricle Normal left ventricular cavity size. Mild concentric left ventricular hypertrophy. Left ventricular ejection fraction is estimated at 55-60 %. Right Ventricle Normal right ventricular size. Right Atrium Mildly increased right atrial size. Left Atrium Mildly increased left atrial size. Mitral Valve Morphologically normal mitral valve. Trace mitral valve regurgitation. Aortic Valve Mild aortic sclerosis with trace aortic valve regurgitation. Tricuspid Valve Morphologically normal tricuspid valve. Trace tricuspid valve regurgitation. Tricuspid regurgitation velocities suggest a PAP of 23.4 mmHg + RAP. Pulmonic Valve Morphologically normal pulmonic valve. Pericardium No pericardial effusion. Aorta Normal size aortic root and proximal ascending aorta. Thompson Balderas (Electronically Signed) Final Date: 09 July 2017 18:05
--- NOTE | 2017-07-09 18:06 | Magnetic Resonance Report ---
MR head/brain wo con Indication: Left-sided arm and hand weakness. Comparison: CT head 07/09/2017. Technique: Using 1.5 Gloria magnet, multisequence multiplanar MR imaging of the brain was performed without the administration of intravenous contrast. Findings: Curvilinear restricted diffusion along the cortex of the right frontal lobe is demonstrated with additional focal restricted diffusion involving the more central/cephalad portion of the precentral gyrus on the right. These areas of restricted diffusion have only minimal hyperintense T2 and FLAIR signal associated suggesting acute to early acute infarction. Generalized atrophy is present bilaterally. Additionally, there are bilateral areas of hyperintense T2 and FLAIR signal within the periventricular white matter throughout the centrum semiovale and christensen radiata that may reflect microvascular ischemic disease. Small lacunar infarction is noted within the left centrum semiovale. Ventricular system demonstrates no evidence of acute pathology. The basal cisterns appear patent. The arterial flow voids appear intact. Low-lying cerebellar tonsils are present. No acute pathology involving the cerebellum is suggested. Small lacunar infarction is noted posteriorly within the marisela adjacent the superior cerebellar peduncle on the left. The orbits and globes demonstrate no evidence of acute pathology. Minimal mucosal thickening of the right ethmoid air cells is present. The calvarium as well as the soft tissues overlying the calvarium demonstrate no evidence of acute pathology. No unexpected areas of enhancement are demonstrated within the brain, meninges, or orbits. Impression: 1. Acute to early subacute infarctions involving the right precentral cortex are present as detailed. 2. Additional findings compatible with microvascular ischemia are present as detailed. 07/09/2017 6:00 PM PROCEDURE INTERPRETED AT [facility] DEPARTMENT OF RADIOLOGY Final Report Signed by: Dr. Severiano Martinez
[2017-07-09] MEDS: APIXABAN 5 MG TABLET PO SCH (20:21)
[2017-07-10] MEDS: SODIUM CHLORIDE 0.9% 1,000 ML IV SCH ×3 (01:47→05:35)
[2017-07-10] MEDS: diphenhydrAMINE 50 MG/1 ML VIAL IV SCH ×2 (01:54→06:14)
[2017-07-10] MEDS: methylPREDNISolone SOD SUC 40 MG/1 ML VIAL IV SCH (02:06)
[2017-07-10] MEDS: SPIRONOLACTONE 25 MG TABLET PO SCH (08:27)
[2017-07-10] MEDS: APIXABAN 5 MG TABLET PO SCH ×2 (08:28→21:28)
[2017-07-10] MEDS: ATORVASTATIN 20 MG TABLET PO SCH (08:28)
[2017-07-10] MEDS: FUROSEMIDE 40 MG TABLET PO SCH (08:28)
[2017-07-10] MEDS: hydroCHLOROthiazide 25 MG TABLET PO SCH (08:28)
[2017-07-10] MEDS: DILTIAZEM CD 240 MG CAPSULE PO SCH (08:28)
[2017-07-10] MEDS ORDERED: GLUCAGON 1 MG VIAL IM PRN (12:25)
[2017-07-10] MEDS ORDERED: DEXTROSE 50% 25 GM/50 ML SYRINGE IV PRN (12:25)
--- NOTE | 2017-07-10 14:59 | Hospitalist Progress Note ---
Assessment and Plan (1) Diabetes Status: Chronic Assessment and plan: Hemoglobin A1C is 7.3 Continue his home metformin SSI Current Visit: No (2) CLL (chronic lymphocytic leukemia) Status: Chronic Current Visit: No (3) Acute left-sided weakness Status: Acute Current Visit: Yes (4) CVA (cerebral vascular accident) Status: Acute Assessment and plan: MRI with acute to subacute infarctions involving the right precentral cortex Neurology consulted PT/OT Patient was suppose to be taking eliquis for his atrial fibrillation but never got the prescription filled, restarted eliquis Discussed case with social work, to make sure that patient's insurance will cover this Current Visit: Yes Hospitalist: Subjective Interval history: No acute events overnight. Patient feels that his left arm weakness is better, although he can barely raise his arm and cannot move his fingers. Exam - Constitutional Vitals: Period Temp Pulse Resp BP Sys/Francis Pulse Ox Last 24 Hr 97.6 F-98.1 F 68-109 16-20 108-153/54-96 92-100 General appearance: over weight - Head Head exam: Present: normocephalic, atraumatic - Eye Eye exam: Present: EOMI Pupils: Present: KALEB - ENT ENT exam: Present: normal exam - Neck Neck exam: Present: normal inspection - Respiratory Respiratory exam: Present: clear to auscultation bilaterally - Cardiovascular Cardiovascular exam: Present: regular rate and rhythm - GI/Abdominal GI/Abdominal exam: Present: normal bowel sounds, soft. Absent: tenderness, rebound - Extremities Exam Extremities exam: Present: other (LUE with no sensory deficits, unable to left above his head or move his fingers) - Back Exam Back exam: Present: normal inspection - Neurological Exam Neurological exam: Present: alert, oriented X3 - Psychiatric Psychiatric exam: Present: normal affect, normal mood - Skin Skin exam: Present: warm, intact Results - Labs CBC & BMP: 07/09/17 09:57 07/09/17 09:57 Quality Measures - Stroke Onset of Symptoms Date: 07/08/17
[2017-07-10] MEDS: metFORMIN 500 MG TABLET PO SCH (16:44)
[2017-07-10] MEDS: INSULIN LISPRO 100 UNIT/ML SUBCUT SCH ×2 (16:44→21:28)
--- NOTE | 2017-07-10 17:15 | Neurology Consult Note ---
History of Present Illness History of present illness: Mr. Byrnes is a 61 year old -[place] gentleman with past medical history significant for chronic atrial fibrillation, hypertension, diabetes, arthritis, sleep apnea, CLL admitted to the hospital with sudden onset of left arm and leg weakness along with some left facial weakness and slurred speech. He is feeling better as far as weakness in the leg is concerned however arm is is still pretty weak. MRI of the brain performed revealed right parietal lobe acute infarct embolic in nature. Carotid ultrasound is unremarkable. In December 2016 he was in the hospital and diagnosed with chronic atrial fibrillation and was discharged home on Eliquis but admitted that he is not taking any antiplatelet agents at home. He also continued to drink alcohol on a daily basis. Denies smoking. Home Medications Medication Instructions Recorded Confirmed Type metFORMIN [Glucophage] 500 mg PO BID W/MEALS #60 tablet 01/03/17 07/09/17 Rx Aspirin EC Tab 81 mg PO QAM 07/09/17 07/09/17 History Atorvastatin [Lipitor] 20 mg PO QAM 07/09/17 07/09/17 History Diltiazem Cd Cap [Cardizem CD] 240 mg PO QAM 07/09/17 07/09/17 History Furosemide Tab [Lasix Tab] 40 mg PO QAM 07/09/17 07/09/17 History Lisinopril 40 mg PO QAM 07/09/17 07/09/17 History Spironolactone [Aldactone] 25 mg PO QAM 07/09/17 07/09/17 History hydroCHLOROthiazide 25 mg PO QAM 07/09/17 07/09/17 History [Hydrochlorothiazide] Allergies Allergy/AdvReac Type Severity Reaction Status Date / Time Shrimp Allergy Unknown Unknown/Unable Verified 01/02/17 07:08 to obtain sulfamethoxazole Allergy Unknown Unknown/Unable Verified 01/02/17 07:08 [From Bactrim] to obtain trimethoprim [From Bactrim] Allergy Unknown Unknown/Unable Verified 01/02/17 07: 08 to obtain amiodarone AdvReac Verified 01/02/17 17:49 12 point system: reviewed and no additional remarkable complaints except as stated Medical,Surgical,& Family Hx - Medical History Cardio: History of: Cardiac Dysrhythmia (A. fib), CHF, Hypertension No history of: CO, Valvular Heart Disease Neurology: No history of: Cerebrovascular Accident, Seizures Endocrine: History of: Diabetes Mellitus (NIDDM), Dyslipidemia Rheumatology: History of;: Rheumatoid Arthritis (in 2004) Respiratory: History of: Asthma, Obstructive Sleep Apnea (Pt did f/u) Gastrointestinal: History of: Liver Problems (Elevated liver enzymes in the past ) Musculoskeletal: History of: Musculoskeletal Problems (arthritis) No history of: Amputation Hematology: History of: Hematologic Cancer (LEUKEMIA 2017) - Surgical History Cardiac Surgeries: Patient Denies: Cardiac Catheterization Thoracic Surgeries: Patient denies;: Organ Transplant, Lobectomy Neurologic Surgeries: Patient denies: Neurologic Surgery HEENT Surgeries: Patient denies: Eye Surgery, Tonsilectomy & Adenoidectomy Abdominal Surgeries: Surgical HX of: Abdominal Surgery Patient denies: Appendectomy, Cholecystectomy, Colonoscopy, Gastric Bypass Surgery, EGD, Hernia Repair Reproductive Surgeries: Patient denies;: Genitourinary Surgery Orthopedic Surgeries: Surgical HX of;: Orthopedic Surgery (left foot bone spurs) Patient denies;: Implanted Devices, Spinal Surgery, Total Hip Replacement, Total Knee Replacement - Family History Family History: Reports;: Family Diabetes (Mother, Father, Brother), Family Heart Disease (Sister), Family Hypertension (Mother, Father, Brother, Sister), Family Stroke Denies;: Family Cancer - Social History Smoking Status: Never smoker Frequency of Alcohol Use: Rarely Type of Drug Use: None Exam - Constitutional Vitals: Period Temp Pulse Resp BP Sys/Francis Pulse Ox Last 24 Hr 97.6 F-98.4 F 68-109 16-20 124-153/54-96 92-100 Exam: GENERAL: Patient is in no acute distress. NECK: Neck is supple. There is no JVD. No carotid bruits present. No thyroid masses. CVS: First and second heart sounds are normal. There is no S3 present. Regular rate and rhythm. RESPIRATORY: Lungs are clear to auscultation without any rales or rhonchi. ABDOMEN: Soft and non-tender. Bowel sounds are present. There is no hepatosplenomegaly. EXT: There is no palpable edema. Peripheral pulses are present. Skin: No rashes Central Nervous system: General: Alert, awake and Oriented x 3 Speech: Fluent Comprehension: Intact and normal Facial expressions: Normal Cranial Nerves: CN1/Olfactory: Normal CN II/ Optic: Normal, Visual Mckinney unreliable CN III, and : KALEB & EOMI CN V: Normal & intact CN VII: face is symmetric CNVIII: Normal CN XI/X/XI/XII: Intact and Normal Motor: Bulk and Tone is normal. Strength in the right 5/5 Strength in the left UE 2/5, LE 4+/5 Sensory: Grossly intact for all the modalities of PP, LT and temp sense Reflexes: 1+ and symmetrical Cerebellar function: Normal finger to nose and heel to hood testing in the right and could not perform the left. Toes: Equivocal Gait: Able to get up and take a few steps with supervision Results - Labs CBC & BMP: 07/09/17 09:57 07/09/17 09:57 Assessment and Plan (1) Acute CVA (cerebrovascular accident) Status: Acute Assessment and plan: Agree with Eliquis 5 mg p.o. twice daily Schedule outpatient PT and OT Discussed at length with the patient regarding disease process, treatment options, prognosis and risk factors of the recurrent stroke. He voiced understanding everything. Instructed him to stop drinking alcohol completely. Thank you for the consult Current Visit: Yes (2) Atrial fibrillation with RVR Status: Chronic Current Visit: No (3) Hypertension Status: Chronic Current Visit: No (4) Hyperlipidemia Status: Chronic Current Visit: No (5) Diabetes Status: Chronic Current Visit: No (6) CLL (chronic lymphocytic leukemia) Status: Chronic Current Visit: No
[2017-07-11 06:58] LABS: Basophils # 0.1 10*3/uL (0.0-0.2); Basophils % 0.2 % (0.0-0.8); Hematocrit 42.5 VOL% (42.0-52.0); Hemoglobin 13.3 GM/DL (14.0-18.0); Immature Granulocytes % 0.5 %; Immature Granulocytes Absolute 0.17 #; Lymphocytes % 63.4 % (21.2-54.2); Mean Corpuscular HGB Conc 31.3 GM/DL (32-36); Mean Corpuscular Hemoglobin 22 PG (27-34); Mean Corpuscular Volume 70.4 FL (87-102); Mean Platelet Volume 10.1 FL (9.6-12.0); Monocytes # 0.9 10*3/uL (0.11-0.8); Monocytes % 2.5 % (1.7-12.7); Neutrophils # 11.6 10*3/uL (1.4-7.4); Neutrophils % 33.4 % (38.7-73.9); Platelet Count 361 T/CUMM (130-400); Red Blood Count 6.04 MC/CUMM (3.8-5.5); Red Cell Distribution Width 17.5 % (9.3-17.3); White Blood Count 34.7 T/CUMM (4-12)
[2017-07-11 07:25] LABS: Giant Platelets Few; Hypochromasia 1+; Lymphocytes 60 % (20-55); Platelet Estimate Adequate; Segmented Neutrophils 35 % (50-85); Total Cells Counted 100
[2017-07-11 07:26] LABS: Atypical Lymphocytes Few; Microcytosis 1+; Smudge Cells Few
[2017-07-11 08:02] VITALS: BP 134/90
[2017-07-11] MEDS: hydroCHLOROthiazide 25 MG TABLET PO SCH (08:35)
[2017-07-11] MEDS: FUROSEMIDE 40 MG TABLET PO SCH (08:35)
[2017-07-11] MEDS: ATORVASTATIN 20 MG TABLET PO SCH (08:36)
[2017-07-11] MEDS: APIXABAN 5 MG TABLET PO SCH (08:36)
[2017-07-11] MEDS: metFORMIN 500 MG TABLET PO SCH (08:36)
[2017-07-11] MEDS: DILTIAZEM CD 240 MG CAPSULE PO SCH (08:36)
[2017-07-11] MEDS: SPIRONOLACTONE 25 MG TABLET PO SCH (08:36)
[2017-07-11] MEDS: INSULIN LISPRO 100 UNIT/ML SUBCUT SCH (08:36)
--- NOTE | 2017-07-11 08:48 | Discharge Summary ---
<Vandana Jasso - Last Filed: 07/11/17 08:45> Hospital Course - Hospital Course Hospital Course: Mr. Byrnes is 61 yr old black male with a past medical history of chronic afib, htn, dm, arthritis, sleep apnea, and leukemia that presented to the ED on 07/09 for further evaluation of left arm and hand weakness and c/o of left sided upper lip swelling as well as tongue swelling. The onset of both complaints were the day before (07/08). The lip and tongue swelling began after he ate lunch at a local restaurant. Pt. has a shrimp allergy but consumed chicken at the time. Pt worried about a possible cross contamination with foods. He took Benadryl after the symptoms started and another Benadryl prior to arrival to the ED with some improvement in the lip and tongue swelling. Patient also reported that he is on lisinopril but had not had any problems with swelling previously. The left arm and hand weakness started later in the day after the swelling. Pt. admits that he was prescribed Eliquis on a previous admission earlier in the year but was not complaint with taking the medication. He also denied asa use. In the ED, patient's CXR and CT were both negative. Pt. was noted to be in Afib w/ PVCs. WBC was noted at 27.8. Pt. was admitted to the hospitalist service for further evaluation and treatment of symptoms. Patient was placed on monitored bed and neurology was consulted to evaluate. MRI was ordered and revealed acute to subacute infarctions involving the right precentral cortex. PT/OT was consulted to work with patient. Patient was restarted on Eliquis 5mg BID. Neurology discussed the disease process and treatment options. Pt's condition has improved and he is stable to be discharged home. Pt. is currently receiving physical therapy for his knee in [place]. He will have the therapy for his arm/hand incorporated into his current regimen. Discharge Plan - Discharge Data Disposition: Disch To Home/Self Care - Discharge Medications New Apixaban [Eliquis] 5 mg PO BID #60 tablet Continue metFORMIN [Glucophage] 500 mg PO BID W/MEALS #60 tablet hydroCHLOROthiazide [Hydrochlorothiazide] 25 mg PO QAM Lisinopril 40 mg PO QAM Aspirin EC Tab 81 mg PO QAM Atorvastatin [Lipitor] 20 mg PO QAM Furosemide Tab [Lasix Tab] 40 mg PO QAM Diltiazem Cd Cap [Cardizem CD] 240 mg PO QAM Spironolactone [Aldactone] 25 mg PO QAM - Follow Up or Referral - Forms/Instructions Exam - Constitutional Vitals: Period Temp Pulse Resp BP Sys/Francis Pulse Ox Last 24 Hr 96.6 F-98.4 F 71-109 16-20 120-153/70-90 92-98 Discharge Results Labs on day of discharge: Labs from last 24 hours 07/11/17 07/11/17 07/10/17 07:51 06:51 19:46 WBC 34.7 H RBC 6.04 H Hgb 13.3 L Hct 42.5 MCV 70.4 L MCH 22 L MCHC 31.3 L RDW 17.5 H Plt Count 361 MPV 10.1 Neut % (Auto) 33.4 L Lymph % (Auto) 63.4 H Cottle % (Auto) 2.5 Eos % (Auto) 0.0 Baso % (Auto) 0.2 Neut # (Auto) 11.6 H Lymph # (Auto) 22.0 H Cottle # (Auto) 0.9 H Eos # (Auto) 0.0 Baso # (Auto) 0.1 Total Counted 100 Immature Gran % 0.5 Nucleated RBC % 0.0 Immature Gran # 0.17 Segmented Neutrophils 35 L Lymphocytes 60 H Monocytes 5 Nucleated RBCs # 0.00 Atypical Lymphocytes Few Smudge Cells Few Platelet Estimate Adequate Giant Platelets Few Immature Plt Fraction 0.0 Hypochromasia 1+ Microcytosis 1+ POC Glucose 194 H 205 H 07/10/17 15:05 WBC RBC Hgb Hct MCV MCH MCHC RDW Plt Count MPV Neut % (Auto) Lymph % (Auto) Cottle % (Auto) Eos % (Auto) Baso % (Auto) Neut # (Auto) Lymph # (Auto) Cottle # (Auto) Eos # (Auto) Baso # (Auto) Total Counted Immature Gran % Nucleated RBC % Immature Gran # Segmented Neutrophils Lymphocytes Monocytes Nucleated RBCs # Atypical Lymphocytes Smudge Cells Platelet Estimate Giant Platelets Immature Plt Fraction Hypochromasia Microcytosis POC Glucose 306 H DS: Provider Date of admission: 07/10/17 11:15 Primary care physician: Marcia Newberry DO Attending physician on admission: Antoinette Lowery MD Consults: 07/09/17 12:41 Consult to Case Mgmt/Social Srvs [CONS] Routine Reason for Case Mgmt/Social Srvs: Discharge Planning Consult to Occupational Therapy [CONS] Routine Reason for Occupational Therapy: Evaluate and Treat Consult Comment: Stroke Consult to Physical Therapy [CONS] Routine Reason for Physical Therapy: Evaluate and Treat Consult Comment: stroke 07/09/17 17:32 Consult to Physician [CONS] Routine Comment: left arm weakness, history of afib, not taking carolyn Consulting Provider: Edgar Rehman Person Notified: pete Date Notified: 07/10/17 Time Notified: 08:35 07/10/17 17:48 Consult to Case Mgmt/Social Srvs [CONS] Routine Reason for Case Mgmt/Social Srvs: Other Consult Comment: Set up outpatient PT/OT for patient's left side symptoms. Discharging clinician: Vandana Jasso NP <Antoinette Lowery - Last Filed: 07/11/17 09:59> Hospital Course - Time spent with patient Time with patient DS: Less than 30 minutes Diagnosis - Discharge Diagnosis (1) Diabetes Status: Chronic (2) CLL (chronic lymphocytic leukemia) Status: Chronic (3) Acute left-sided weakness Status: Acute (4) CVA (cerebral vascular accident) Status: Chronic Discharge Plan - Discharge Data Condition at Discharge: Stable Discharge Diet: heart healthy Activity: as per physical therapy Hygiene: no restrictions Weight Bearing at Discharge: weight bear as tolerated Contact your physician if you experience:: Nausea/Vomiting, Shortness of breath Exam - Constitutional General appearance: over weight - Head Head exam: Present: normocephalic, atraumatic - Eye Eye exam: Present: EOMI Pupils: Present: KALEB - ENT ENT exam: Present: normal exam - Neck Neck exam: Present: normal inspection - Respiratory Respiratory exam: Present: clear to auscultation bilaterally. Absent: rhonchi, wheezes - Cardiovascular Cardiovascular exam: Present: regular rate and rhythm - GI/Abdominal GI/Abdominal exam: Present: normal bowel sounds, soft. Absent: tenderness, rebound - Extremities Exam Extremities exam: Present: normal inspection - Back Exam Back exam: Present: normal inspection - Neurological Exam Neurological exam: Present: alert, oriented X3 - Psychiatric Psychiatric exam: Present: normal affect, normal mood - Skin Skin exam: Present: warm, intact
== END 2017-07-11 10:50 | disposition home or self-care (01) | DRG 65 ==
LOC: N.EDINP 09:13 → N.ED 09:13 → N.EDINP 15:37 → N.TELES 17:25
PROVIDERS: ADMIT Internal Medicine; ATTEND Internal Medicine